=== PATIENT | female | born 1935 | race Caucasian/White ===

== ENCOUNTER → 2024-01-21 11:21 | Outpatient (REF) | payer OTHER, SELFPAY | LOC: HWRAD 11:21 | PROVIDERS: ATTENDING PHYSICIAN Student in an Organized Health Care Education/Training Program | DX: R10.31 Right lower quadrant pain (principal) | CPT/HCPCS: 73523 ==

== ENCOUNTER → 2024-03-17 14:25 | Outpatient (REF) | payer OTHER, SELFPAY | LOC: RAD 14:25 | PROVIDERS: ATTENDING PHYSICIAN Nurse Practitioner Adult Health; FAMILY PHYSICIAN Student in an Organized Health Care Education/Training Program | DX: I82.421 Acute embolism and thrombosis of right iliac vein (principal); R91.8 Other nonspecific abnormal finding of lung field; R09.02 Hypoxemia | CPT/HCPCS: 71250; 93971 ==

== ENCOUNTER → 2024-04-20 07:36 | Outpatient (REF) | payer OTHER, SELFPAY | LOC: RAD 07:36 | PROVIDERS: ATTENDING PHYSICIAN Student in an Organized Health Care Education/Training Program | DX: N28.89 Other specified disorders of kidney and ureter (principal) | CPT/HCPCS: 74178; Q9967 ==

== ENCOUNTER → 2024-10-11 10:52 | Outpatient (REF) | payer OTHER, SELFPAY | LOC: HWRCS 10:52 | PROVIDERS: ATTENDING PHYSICIAN Nuclear Medicine Nuclear Cardiology; FAMILY PHYSICIAN Student in an Organized Health Care Education/Training Program | DX: R06.02 Shortness of breath (principal); I25.10 Atherosclerotic heart disease of native coronary artery without angina pectoris; I50.32 Chronic diastolic (congestive) heart failure | CPT/HCPCS: 93306 ==

== ENCOUNTER 2024-12-08 18:12 | Inpatient (IN) | payer OTHER, SELFPAY ==
[2024-12-08] VITALS (9 sets, daily range): BP systolic 99–152; BP diastolic 53–112; BMI 29.8; BMI 29.2
[2024-12-08 12:01] LABS: % Basophils 0.7 % (0-2); % Eosinophils 3.4 % (0-6); % Immature Granulocytes 0.2 % (0-0.5); % Lymphocytes 28.5 % (20.5-51.1); % Monocytes 7.5 % (1.7-9.3); % Neutrophils 59.7 % (42.2-75.2); Absolute Basophils 0.1 10^3/uL (0-0.2); Absolute Eosinophils 0.4 10^3/uL (0-0.7); Absolute Monocytes 0.8 10^3/uL (0.1-0.6); Absolute Neutrophils 6.2 10^3/uL (1.4-6.5); Hematocrit 41.5 % (37.0-47.0); Hemoglobin 14.1 g/dL (12.0-16.0); Mean Corpuscular Hgb 32.7 pg (27.0-31.0); Mean Corpuscular Volume 96.3 fL (81.0-99.0); Mean Platelet Volume 9.9 fL (7.4-10.4); Nucleated Red Blood Cells % 0 %; Platelet Count 203 10^3/uL (130-400); Red Blood Cell Count 4.31 10^6/uL (4.20-5.40); Red Cell Dist. Width 14.4 % (11.5-14.5); White Blood Cell Count 10.4 10^3/uL (4.8-10.8)
[2024-12-08 12:24] LABS: Troponin I < 0.012 ng/ml
[2024-12-08 13:29] LABS: ALT (SGPT) 19 U/L (0-35); AST (SGOT) 22 U/L (14-36); Albumin 4.8 g/dl (3.5-5.0); Alkaline Phosphatase 98 U/L (38-126); Blood Urea Nitrogen 29 mg/dl (7-17); Calcium 9.9 mg/dl (8.4-10.2); Carbon Dioxide 22 mmol/L (22-30); Chloride 106 mmol/L (98-107); Glucose 103 mg/dl (70-99); Sodium 141 mmol/L (135-145); Total Protein 7.9 g/dl (6.3-8.2); eGFR 36.19
--- NOTE | 2024-12-08 14:17 | ED.GENMED ---
History of Present Illness
<Bouchra Cross PA-C - Last Filed: 12/09/24 01:35>
General
Chief Complaint: Heart Rate Problem
Source: patient
Exam Limitations: none
Time Seen by Provider: 12/08/24 13:39
Nursing documentation reviewed up to this point in time: agreed with
History of Present Illness
History of Present Illness:
Patient is an 89-year-old female with history of CHF, CAD s/p 2 stents, hypertension presenting to the emergency department for evaluation of shortness of breath. Patient reports a few weeks of worsening shortness of breath with exertion. No
exertional chest pain although she did have an episode about 2 weeks ago of substernal chest pressure radiating to both arms that woke her from her sleep. This lasted less than 10 minutes and then resolved. Patient does report frequent cough with
productive sputum over the past 2 weeks since recent URI. Patient denies any associated fevers, chills. No known weight gain. No recent diet changes
Patient states that she was at her primary care this morning for scheduled appointment and after discussion of patient symptoms along with some 'abnormal 'EKG�patient was sent to the emergency department for further evaluation
Past History
<Bouchra Cross PA-C - Last Filed: 12/09/24 01:35>
Past History
ED Past Medical History: CAD
Review of Systems
<Bouchra Cross PA-C - Last Filed: 12/09/24 01:35>
Review of Systems
Allergies reviewed?: Yes
All Other Systems: ROS reviewed and negative except as documented in HPI and ROS
Phy Exam
<Bouchra Cross PA-C - Last Filed: 12/09/24 01:35>
Physical Exam
Physical Exam:
Vitals: Hypertensive, mildly tachypneic, otherwise stable vital signs. Afebrile
General: Patient is well appearing, no acute distress
Skin: Warm and dry, no rashes or lesions
Head: Normocephalic, atraumatic
Eyes: Sclera nonicteric. EOMs intact. No nystagmus.
Throat: Protecting airway
Neck: Normal ROM, no cervical spine tenderness, no meningismus. No JVD
Cardiac: Regular rate and rhythm, no murmurs.
Pulm: Mildly tachypneic. O2 saturation 88-92 on room air. Mild expiratory wheeze bilaterally with scattered rhonchi. Frequent cough.
Abdomen: Abdomen soft. No abdominal tenderness.
Extremities: Nonpitting edema bilateral lower extremities.
Neuro: AAOx3. Grossly intact.
Psychiatric: Normal affect.
Course
<Bouchra Cross PA-C - Last Filed: 12/09/24 01:35>
Orders/Labs/Results
Orders:
Orders
12/08/24 11:35
ECG [Electrocardiogram (*1)] Urgent
Reason for Study: Abnormal EKG
12/08/24 11:36
EKG- Treatment ONCE
12/08/24 11:40
CXR2 [CR Chest - 2 Views ] Urgent
Comment:
Reason For Exam: sob
12/08/24 11:49
Complete Blood Count/With Diff Urgent
NT-proBNP Urgent
Comment: ADD ON
Troponin I Urgent
12/08/24 13:07
Comprehensive Metabolic Panel Urgent
12/08/24 14:09
Ipratropium/Albuterol Sulfate [Duoneb] 3 ml INH R NOW STA
12/08/24 14:21
COVID-19 Antigen Urgent
Source: Nasal Swab
Influenza A+B Rapid Molecular Urgent
SHAWN Source: Nasal Swab
Specimen Description:
12/08/24 14:22
Dexamethasone Sod Phosphate [Decadron] 6 mg IV NOW STA
12/08/24 14:50
Electrocardiogram (*1) Urgent
Reason for Study: Shortness of Breath
12/08/24 Dinner
Cholesterol Lowering
At Your Request: Limited Participation
Cholesterol Lowering: Sodium, 2 Gram
12/08/24 15:31
Troponin I Urgent
12/08/24 17:27
Admit/Transfer Patient As Directed
Co-Sign Provider:
Level of Care: Inpatient admission
Assign to:: Medical/Surgical
Physician / Group: Zack Deras
Diagnosis: bronchotis with hypoxia
Reason for Hospitalization: bronchitis with hypoxia
Expected length of stay greater than two midnights?: Yes
ELOS- Estimated Length of Stay in days: 3
I certify the patient meets the requirements for IP care: Yes
12/08/24 17:28
PRN Pain Medication Management As Directed
May give lesser potent ordered pain med per pt: Yes
preference::
Protocol:: Medication orders for pain may be administered in a
manner that supports deferring to patient preference
when the pt is:
- Requesting an ordered lesser potent pain medication.
Least to most potent pain medications are defined
as: acetaminophen < NSAID < tramadol < opioids
(morphine, oxycodone, hydromorphone).
- Requesting a lesser dose of the same medication IF
ORDERED.
- Requesting a less intrusive route of administration
if both routes are prescribed by the provider (PO <
IV).
12/08/24 17:30
Code Status As Directed
Resuscitation Status: Full Code
12/08/24 19:50
Ipratropium/Albuterol Sulfate [Duoneb] 3 ml INH R Q4HPRN PRN
12/08/24 19:50
Activity As Directed
Activity Level: Out of Bed-Early Mobility
Intake/ Output As Directed
Frequency: Per unit guidelines
Vital Signs As Directed
Frequency: Per unit guidelines
Weight As Directed
Frequency: Daily
O2 Therapy [RESP] Routine
Titrate/Wean O2 to maintain O2 sat greater than (%): 93
12/08/24 20:00
Apixaban [Eliquis] 5 mg PO BID
Guaifenesin [Mucinex] 1,200 mg PO Q12
Ipratropium/Albuterol Sulfate [Duoneb] 3 ml INH R QID
12/08/24 21:06
Urine Culture Reflexed from UA [Urinalysis Reflex To Culture] Routine
Date Specimen was Collected: 12/08/24
Time Specimen was Collected: 21:03
12/08/24 21:17
Artificial Tears (Pf) [Refresh Eye Drops (Pf)] 2 drops BOTH EYES QIDPRN PRN
12/09/24 00:00
Dexamethasone Sod Phosphate [Decadron] 4 mg IV Q8H
12/09/24 06:00
Basic Metabolic Panel IN AM
Complete Blood Count/No Diff IN AM
12/09/24 08:00
Allopurinol [Zyloprim] 100 mg PO DAILY
Ascorbic Acid [Vitamin C] 500 mg PO DAILY
Atorvastatin [Lipitor] 20 mg PO DAILY
Clopidogrel Bisulfate [Plavix] 75 mg PO DAILY
Diltiazem Extended Release [Cardizem Cd] 180 mg PO DAILY
Doxazosin Mesylate [Cardura] 0.5 mg PO DAILY
Ezetimibe [Zetia] 10 mg PO DAILY
Furosemide [Lasix] 20 mg PO DAILY
Multivitamin [Theragran] 1 tablet PO DAILY
Pantoprazole [Protonix] 40 mg PO DAILY
Potassium Chloride [KCl] 20 meq PO DAILY
biotin 1 mg PO DAILY
12/10/24 06:00
Basic Metabolic Panel IN AM
Complete Blood Count/No Diff IN AM
12/11/24 06:00
Basic Metabolic Panel IN AM
Complete Blood Count/No Diff IN AM
Abnormal Lab Results
12/08/24 12/08/24
11:49 13:07
MCH 32.7 H pg
(27.0-31.0)
Absolute Monos (auto) 0.8 H 10^3/uL
(0.1-0.6)
BUN 29 H mg/dl
(7-17)
Creatinine 1.4 H mg/dL
(0.6-1.0)
Glucose 103 H mg/dl
(70-99)
Total Bilirubin 2.0 H mg/dl
(0.2-1.3)
12/08/24 11:49
12/08/24 13:07
Vital Signs
Initial and Last Documented VS:
Initial Vital Signs
Temp Pulse Resp BP Pulse Ox
98.7 F 87 22 150/71 90
12/08/24 11:37 12/08/24 11:37 12/08/24 11:37 12/08/24 11:37 12/08/24 11:37
Last Documented Vital Signs
Temp Pulse Resp BP Pulse Ox
97.8 F 82 16 99/68 98
12/08/24 23:00 12/08/24 23:00 12/08/24 23:00 12/08/24 23:00 12/08/24 23:00
Fransicolt;Mk Pedro, DO - Last Filed: 12/08/24 14:27>
Orders/Labs/Results
Orders:
Orders
12/08/24 11:35
ECG [Electrocardiogram (*1)] Urgent
Reason for Study: Abnormal EKG
12/08/24 11:36
EKG- Treatment ONCE
12/08/24 11:40
CXR2 [CR Chest - 2 Views ] Urgent
Comment:
Reason For Exam: sob
12/08/24 11:49
Complete Blood Count/With Diff Urgent
NT-proBNP Urgent
Comment: ADD ON
Troponin I Urgent
12/08/24 13:07
Comprehensive Metabolic Panel Urgent
12/08/24 14:09
Ipratropium/Albuterol Sulfate [Duoneb] 3 ml INH R NOW STA
12/08/24 14:21
COVID-19 Antigen Urgent
Source: Nasal Swab
Influenza A+B Rapid Molecular Urgent
SHAWN Source: Nasal Swab
Specimen Description:
12/08/24 14:22
Dexamethasone Sod Phosphate [Decadron] 6 mg IV NOW STA
12/08/24 14:50
Electrocardiogram (*1) Urgent
Reason for Study: Shortness of Breath
12/08/24 Dinner
Cholesterol Lowering
At Your Request: Limited Participation
Cholesterol Lowering: Sodium, 2 Gram
12/08/24 15:31
Troponin I Urgent
12/08/24 17:27
Admit/Transfer Patient As Directed
Co-Sign Provider:
Level of Care: Inpatient admission
Assign to:: Medical/Surgical
Physician / Group: Zack Deras
Diagnosis: bronchotis with hypoxia
Reason for Hospitalization: bronchitis with hypoxia
Expected length of stay greater than two midnights?: Yes
ELOS- Estimated Length of Stay in days: 3
I certify the patient meets the requirements for IP care: Yes
12/08/24 17:28
PRN Pain Medication Management As Directed
May give lesser potent ordered pain med per pt: Yes
preference::
Protocol:: Medication orders for pain may be administered in a
manner that supports deferring to patient preference
when the pt is:
- Requesting an ordered lesser potent pain medication.
Least to most potent pain medications are defined
as: acetaminophen < NSAID < tramadol < opioids
(morphine, oxycodone, hydromorphone).
- Requesting a lesser dose of the same medication IF
ORDERED.
- Requesting a less intrusive route of administration
if both routes are prescribed by the provider (PO <
IV).
12/08/24 17:30
Code Status As Directed
Resuscitation Status: Full Code
12/08/24 19:50
Ipratropium/Albuterol Sulfate [Duoneb] 3 ml INH R Q4HPRN PRN
12/08/24 19:50
Activity As Directed
Activity Level: Out of Bed-Early Mobility
Intake/ Output As Directed
Frequency: Per unit guidelines
Vital Signs As Directed
Frequency: Per unit guidelines
Weight As Directed
Frequency: Daily
O2 Therapy [RESP] Routine
Titrate/Wean O2 to maintain O2 sat greater than (%): 93
12/08/24 20:00
Apixaban [Eliquis] 5 mg PO BID
Guaifenesin [Mucinex] 1,200 mg PO Q12
Ipratropium/Albuterol Sulfate [Duoneb] 3 ml INH R QID
12/08/24 21:06
Urine Culture Reflexed from UA [Urinalysis Reflex To Culture] Routine
Date Specimen was Collected: 12/08/24
Time Specimen was Collected: 21:03
12/08/24 21:17
Artificial Tears (Pf) [Refresh Eye Drops (Pf)] 2 drops BOTH EYES QIDPRN PRN
12/09/24 00:00
Dexamethasone Sod Phosphate [Decadron] 4 mg IV Q8H
12/09/24 06:00
Basic Metabolic Panel IN AM
Complete Blood Count/No Diff IN AM
12/09/24 08:00
Allopurinol [Zyloprim] 100 mg PO DAILY
Ascorbic Acid [Vitamin C] 500 mg PO DAILY
Atorvastatin [Lipitor] 20 mg PO DAILY
Clopidogrel Bisulfate [Plavix] 75 mg PO DAILY
Diltiazem Extended Release [Cardizem Cd] 180 mg PO DAILY
Doxazosin Mesylate [Cardura] 0.5 mg PO DAILY
Ezetimibe [Zetia] 10 mg PO DAILY
Furosemide [Lasix] 20 mg PO DAILY
Multivitamin [Theragran] 1 tablet PO DAILY
Pantoprazole [Protonix] 40 mg PO DAILY
Potassium Chloride [KCl] 20 meq PO DAILY
biotin 1 mg PO DAILY
12/10/24 06:00
Basic Metabolic Panel IN AM
Complete Blood Count/No Diff IN AM
12/11/24 06:00
Basic Metabolic Panel IN AM
Complete Blood Count/No Diff IN AM
Abnormal Lab Results
12/08/24 12/08/24
11:49 13:07
MCH 32.7 H pg
(27.0-31.0)
Absolute Monos (auto) 0.8 H 10^3/uL
(0.1-0.6)
BUN 29 H mg/dl
(7-17)
Creatinine 1.4 H mg/dL
(0.6-1.0)
Glucose 103 H mg/dl
(70-99)
Total Bilirubin 2.0 H mg/dl
(0.2-1.3)
12/08/24 11:49
12/08/24 13:07
Vital Signs
Initial and Last Documented VS:
Initial Vital Signs
Temp Pulse Resp BP Pulse Ox
98.7 F 87 22 150/71 90
12/08/24 11:37 12/08/24 11:37 12/08/24 11:37 12/08/24 11:37 12/08/24 11:37
Last Documented Vital Signs
Temp Pulse Resp BP Pulse Ox
97.8 F 82 16 99/68 98
12/08/24 23:00 12/08/24 23:00 12/08/24 23:00 12/08/24 23:00 12/08/24 23:00
<Bouchra Cross PA-C - Last Filed: 12/09/24 01:35>
MDM/Problems Addressed
Differential Diagnosis Includes:
Not limited to: Acute CHF exacerbation, bronchitis, pneumonia, acute coronary syndrome, etc.
MDM/Problems Addressed:
89-year-old female with progressively worsening shortness of breath and cough over the past few weeks after recent URI. No fevers or chest pain. Vital stable. Physical exam as above. O2 saturation between 88�92 on room air. Heart regular rate
and rhythm. On lung auscultation�patient has scattered rhonchi and expiratory wheeze bilaterally with frequent cough. No significant lower extremity edema. Basic labs initiated in triage without any clinically significant abnormalities. Mild
renal insufficiency noted and appears chronic. Initial troponin undetectable. Chest x-ray without acute abnormalities. EKG without acute ischemic changes. Overall impression is possible viral bronchitis from recent URI. Will add on BNP. Will
check viral swabs. Will give DuoNeb and IV Decadron.
Update: BNP 318. Repeat troponin remains undetectable. Overall picture not consistent with acute CHF exacerbation. Patient has been hypoxic on room air requiring 2 L nasal cannula. Ultimately suspect viral bronchitis with acute hypoxia. Will
admit patient for further respiratory support and continued management. Patient excepted to hospitalist service in stable condition. Case discussed with attending physician.
Chronic conditions affecting care:
CAD, CHF, hypertension
Acute Exacerbation and/or Progression of Chronic Illness:
Acutely hypertensive
<Bouchra Cross PA-C - Last Filed: 12/09/24 01:35>
*Radiology
Radiology exam reviewed: preliminary read by ED provider and radiology read reviewed
*Pulse Oximetry
Patient hypoxic: yes
*EKG
Interpreted by ED Provider?: Yes
EKG Intrepretation Date: 12/08/24
Interpretation: abnormal
Comparison EKG: changes noted
Heart Rate: 79
Rate: normal
Rhythm: sinus
Interval: normal QT interval and first degree heart block
Ischemia: non-specific ST changes
*Motorcycle Designer Interpretation
Rate: normal
Interpretation: normal
Heart Rate: 84
Rhythm: sinus
*Critical Care Note
Total Time (30-74mins, 75-104mins- exclusive of procedures): Not Applicable
<Bouchra Cross PA-C - Last Filed: 12/09/24 01:35>
Patient Management
Discussion with other providers: Hospitalist
Escalation/DeEscalation of care consider admission/obs:
Admit indicated viral bronchitis and acute hypoxia requiring supplemental O2
ED Attending Note
<Bouchra Cross PA-C - Last Filed: 12/09/24 01:35>
-
Portions of this chart may have been created with voice recognition software.� Occasional wrong word or��sound alike� substitutions may have occurred due to the inherent limitations of voice recognition software.
<Mk Pedro DO - Last Filed: 12/08/24 14:27>
ED Attending Note
Patient seen and examined by attending physician: Yes
I performed the substantive portion of visit, reviewed & personally made and approve the management plan that is documented in note by myself or TERESA.: Yes
ED Attending Note:
Seen with the PA examined independently 89-year-old female subacute onset of shortness of breath, cough congestion weight gain leg edema
Still wheezy rhonchorous chest, chest x-ray noted proBNP pending low threshold to admit
Discharge Plan
Departure
Patient Disposition: Admit
Date of Disposition: 12/08/24
Time of Disposition: 16:17
Presentation/result/management discussed w/ accepting MD/DO: Hospitalist
Discharge Problem:
Hypoxia, Acute bronchitis
Interventions
Interventions:
*Risk Screen - Suicide Last Done: 12/08/24 11:37
*General Assessment Last Done: 12/08/24 15:41
*Neglect/Abuse Screening Last Done: 12/08/24 11:37
ED- Fall Risk Assessment Last Done: 12/08/24 20:07
*ED COVID-19 Vaccine History Last Done: 12/08/24 15:41
*Nursing Disposition Last Done: 12/08/24 20:07
ED- Cardiac Assessment Last Done: 12/08/24 15:46
ED- Pulmonary Assessment Last Done: 12/08/24 15:46
Discharge Date and Time
Discharge Date/Time: 12/08/24 20:08
[2024-12-08] MEDS: DUONEB 3 ML INH ×2 (14:23→20:08)
[2024-12-08 14:52] LABS: COVID-19 Antigen Negative (Negative)
[2024-12-08] MEDS: DECADRON 6 MG IV (15:31)
[2024-12-08 16:10] LABS: NT-proBNP 318 pg/ml
[2024-12-08 16:15] LABS: Troponin I < 0.012 ng/ml
--- NOTE | 2024-12-08 16:28 | HPS.HSE ---
Family Physician
-
Family Physician: Nick Ledbetter
Chief Complaint
-
abnormal out patient EKG
History of Present Illness
Patient is a 89-year-old female with past medical history significant for HFpEF, CAD, hypertension and hyperlipidemia who presented to [facility] ED for evaluation by recommendation of primary care provider for abnormal EKG in primary office.
Patient reports URI symptoms for approximately 2-3 weeks. She reports increased shortness of breath with cough especially at night. Cough is moist and non-productive. She reports an episodes of being woken from her sleep with chest pressure that
radiated to bilateral arms, she reports it was associated with a coughing fit that took about 10 minutes to resolve. Patient also reports that she has foul smelling urine. Patient denies any fever, chills, nausea, vomiting, constipation or diarrhea.
Medical History
Past Medical History
Past Medical History: Reports None
Additional Past Medical History:
HFpEF
CAD
hypertension
hyperlipidemia
Hx DVT
Past Surgical History: Reports None
Additional Past Surgical History:
cardiac stent x2
hysterectomy
breast augmentation
exploratory laparoscopy for endometriosis
appendectomy
b/l knee replacements
Social History
Tobacco: Non-smoker
Alcohol: None
Drug: None
Personal:
Living: With Family
Employment: Retired
Family History
Family History: Not pertinent
Allergies / Home Medications
Allergies reflects when Allergies were last updated in [facility].
Home Medications with original date entered in [facility]
Allergy/Medication List:
Allergies
Allergy/AdvReac Type Severity Reaction Status Date / Time
adhesive tape Allergy Unknown Verified 12/08/24 11:37
iodine Allergy Unknown Verified 12/08/24 11:37
povidone-iodine Allergy Unknown Verified 12/08/24 11:37
[From Betadine]
Home Medications
allopurinol 100 mg tablet 100 mg PO DAILY gout 11/09/23
diltiazem HCl 180 mg capsule,extended release 24 hr 180 mg PO DAILY blood pressure 11/09/23
doxazosin 1 mg tablet 0.5 mg PO DAILY blood pressure 11/09/23
ezetimibe 10 mg tablet 10 mg PO DAILY high cholesterol 11/09/23
pantoprazole 40 mg tablet,delayed release 40 mg PO DAILY Gastrointestinal Issue 11/09/23
polyvinyl alcohol-povidone 0.5 %-0.6 % eye drops 2 drp BOTH EYES QIDPRN PRN dry eyes 11/09/23
potassium chloride 20 mEq tablet,extended release 20 meq PO DAILY Electrolyte Repletion 11/25/23
apixaban 5 mg tablet (Eliquis) 5 mg PO BID #60 tabs 12/02/23
clopidogrel 75 mg tablet 75 mg PO DAILY Blood clot prevention/tx #30 tabs 12/02/23
furosemide 20 mg tablet 20 mg PO DAILY #30 tabs 12/02/23
ascorbic acid (vitamin C) 500 mg tablet (Vitamin C) 500 mg PO DAILY 12/08/24
atorvastatin 20 mg tablet 20 mg PO DAILY 12/08/24
biotin 1 mg tablet 1 mg PO DAILY 12/08/24
therapeutic multivitamin 1 tab PO DAILY 12/08/24
Review of Systems
-
History Source: Patient
Constitutional: Reports No Symptoms
EENT: Reports No Symptoms
Respiratory: Reports Cough (non-productive moist ) and Other (shortness of breath )
Cardiac: Reports No Symptoms
Abdomen/GI: Reports No Symptoms
: Reports Other (foul smelling urine )
Musculoskeletal: Reports No Symptoms
Skin: Reports No Symptoms
Neurological: Reports No Symptoms
Endocrine: Reports No Symptoms
Hematologic/Lymphatic: Reports No Symptoms
Psych: Reports No Symptoms
Physical Exam
Vital Signs
Vital Signs
Temp Pulse Resp BP Pulse Ox
98.7 F 81 24 138/64 95
12/08/24 11:37 12/08/24 15:45 12/08/24 15:45 12/08/24 15:40 12/08/24 16:16
Physical Exam
General: Well Developed, Well Nourished and No Apparent Distress
HEENT: NormoCephalic, Moist mucous membranes and Atraumatic
Respiratory: Clear and Wheezes
Cardiac: S1/S2 and Regular Rhythm; No Murmur, Rub or Gallop
GI: Soft, Non Tender, Non Distended and Normal Bowel Sounds; No Organomegaly
Rectal: Deferred by Provider
Genito-urinary: Deferred by me
Musculoskeletal: No Clubbing, No Cyanosis and No Edema
Skin: No Rash
Neuro: Awake, Alert and Nonfocal/grossly intact
Psych: Calm and Intact Judgment/Insight
Laboratory Results
-
12/08/24 11:49
12/08/24 13:07
Laboratory Results
Total Bilirubin 2.0 mg/dl (0.2-1.3) H 12/08/24 13:07
AST 22 U/L (14-36) 12/08/24 13:07
ALT 19 U/L (0-35) 12/08/24 13:07
Alkaline Phosphatase 98 U/L (38-126) 12/08/24 13:07
Troponin I < 0.012 ng/ml 12/08/24 15:31
Data Reviewed
-
Diagnostic Radiology: Report Reviewed by me (CXR: No acute cardiopulmonary process.)
Medical Tests (Nuc Med, Echo, EKG etc): Report Reviewed by me (EKG: SINUS RHYTHM WITH 1ST DEGREE A-V BLOCK LEFT ANTERIOR FASCICULAR BLOCK ANTEROSEPTAL INFARCT (CITED ON OR BEFORE 26-NOV-2023))
Lab Data: Labs Reviewed by me (BUN 29, Creat 1.4, BNP 318)
Impression/Plan
-
IMPRESSION/PLAN:
#shortness of breath with hypoxia
CXR: No acute cardiopulmonary process.
- Admit to med/surg
- DuoNeb ATC and PRN
- IV Decadron
- O2 PRN titrate as needed to maintain SpO2 >93%
- Mucinex
#HFpEF
BNP 318
ECHO (10/11/2024): Technically difficult study. Consider use of IV echo contrast for future studies.
Normal left ventricular size and systolic function.
Left ventricular ejection fraction visually estimated 55-60%
No significant valvular disease.
Compared to prior study dated 11/26/2023, no significant change
- daily weights
- continue ezetimibe, furosemide, and potassium chloride
#CAD
s/p cardiac stent x2
- continue clopidogrel and Eliquis
#hypertension
- continue diltiazem
#hyperlipidemia
- continue atorvastatin and doxazosin
#Hx DVT
- continue Eliquis BID
#GERD
- continue pantoprazole
Code status: Full code
DVT Prophylaxis: Eliquis
--- NOTE | 2024-12-08 20:20 | PTCARENOTE ---
Pt received from ED at 1999. Pt pleasant, [id number], VSS, and pulled over into bed from stretcher. Pt receptive to room and call brennan. Pt bed in lowest position and call brennan within reach. Pt educated on importance of call brennan usage. Pt relays
understanding and cooperation. Will continue with current plan of care.
--- NOTE | 2024-12-08 20:45 | W.PN.UPDATE ---
Update Note
Progress Note Update
Attending addendum
Patient seen independently
89-year-old woman with past medical history significant for:
HFpEF,
CAD,
essential hypertension
hyperlipidemia
presents because of abnormal EKG in primary office. Also reports URI symptoms for 2-3 weeks. Specifically, she reports increased shortness of breath with cough worst at night. Cough is moist and non-productive. She reports being woken from her sleep
with chest pressure that radiated to bilateral arms, this pain was associated with a coughing fit that took about 10 minutes to resolve. She also reports that she has foul smelling urine. She denies any fever, chills, nausea, vomiting, constipation
or diarrhea. At the time of my exam, she stated that her breathing was feeling better. CXR does not show active process.
Past Medical History
HFpEF
CAD
hypertension
hyperlipidemia
Hx DVT
Past Surgical History: Reports None
Additional Past Surgical History:
cardiac stent x2
hysterectomy
breast augmentation
exploratory laparoscopy for endometriosis
appendectomy
b/l knee replacements
Physical Exam
General: Well Developed, Well Nourished and No Apparent Distress
HEENT: NormoCephalic, Moist mucous membranes and Atraumatic
Respiratory: Clear and Wheezes
Cardiac: S1/S2 and Regular Rhythm; No Murmur, Rub or Gallop
GI: Soft, Non Tender, Non Distended and Normal Bowel Sounds; No Organomegaly
Psych: Calm
Impression/Plan
1. shortness of breath with possible hypoxia - probable viral process
Troponin neg
BNP low
CXR without active process
- DuoNeb ATC and PRN
- IV Decadron
- O2 PRN titrate as needed to maintain SpO2 >93%
- Mucinex
2. HFpEF - likely not exacerbated
- daily weights
- continue ezetimibe, furosemide, and potassium chloride
Please see LIBRARIAN ASSISTANT note for full details on:
CAD
hypertension
hyperlipidemia
Hx DVT (on eliquis)
GERD
Code status: Full code
DVT Prophylaxis: Eliquis
[2024-12-08 21:16] LABS: Urine Albumin Negative (Neg - Trace); Urine Bilirubin Negative (Negative); Urine Character Slightly Cloudy (Clear); Urine Color Yellow; Urine Glucose Negative (Negative); Urine Ketone Negative (Negative); Urine Leukocyte 1+ (Negative); Urine Nitrite Negative (Negative); Urine Occult Blood Negative (Negative); Urine Urobilinogen Negative (Neg - 1+)
[2024-12-08 21:25] LABS: Urine Red Blood Cell 0-2 /HPF (0-2)
[2024-12-08 21:26] LABS: Urine Bacteria Many (Negative); Urine White Cell 16-20 /HPF (0-5)
[2024-12-08] MEDS: ELIQUIS 5 MG PO (21:55)
[2024-12-08] MEDS: MUCINEX 1200 MG PO (21:55)
[2024-12-08] MEDS: MELATONIN 3 MG PO (22:59)
[2024-12-08] MEDS: DECADRON 4 MG IV (23:02)
[2024-12-09 06:00] VITALS: BMI 28.9
[2024-12-09 07:00] VITALS: BP 116/87
--- NOTE | 2024-12-09 07:27 | W.PN.HOSP.TC ---
Today's Communication/Plan
-
cont steroids
Bronchodilators
Incentive Spirometer, Acapella, VEST
wean O2 supplementation as tolerated.
Assessment / Plan
Assessment / Plan
Physical Exam
General: No acute distress. Appears Comfortable at this time
HEENT: NormoCephalic, Moist mucous membranes and Atraumatic
Respiratory: Rhonchi
Cardiac: S1/S2 and Regular Rhythm; No Murmur, Rub or Gallop
GI: Soft, Non Tender, Non Distended and Normal Bowel Sounds; No Organomegaly
Musculoskeletal: No Clubbing, No Cyanosis and No Edema
Skin: No Rash
Neuro: Awake, Alert and Nonfocal/grossly intact
Psych: Calm and Intact Judgment/Insight
89F HFpEF CAD HTN HLD hx DVT Eliquis here with hypoxia requiring 2L nasal cannula, suspect post-viral upper respiratory illness- reported URI symptoms for the past 2-3 wks.
#shortness of breath with hypoxia
#Suspect Post-viral upper respiratory illness
CXR: No acute cardiopulmonary process.
- DuoNeb ATC and PRN
- IV Decadron
- O2 PRN titrate as needed to maintain SpO2 >93%, wean as tolerated
- Mucinex
- Incentive Spirometer, Acapella, VEST
#HFpEF
BNP 318
ECHO (10/11/2024): Technically difficult study. Consider use of IV echo contrast for future studies.
Normal left ventricular size and systolic function.
Left ventricular ejection fraction visually estimated 55-60%
No significant valvular disease.
Compared to prior study dated 11/26/2023, no significant change
- daily weights
- continue ezetimibe, furosemide, and potassium chloride
#Regarding Abnormal EKG
-EKGs done here 12.08.24 appeared relatively similar to EKGs done 11.26.23, no significant changes were noted
-chest pain free, negative troponin, BNP unremarkable
-case was discussed with patient's outpt Visitor Services Representative Dr Vargas who recommended patient continue with her prior scheduled follow up appt in Dec
#CAD
hx cardiac stents x2
- continue clopidogrel
#hypertension
- continue diltiazem
#hyperlipidemia
- continue atorvastatin and doxazosin
#Hx DVT
- continue Eliquis BID
#GERD
- continue pantoprazole
Code status: Full code
DVT Prophylaxis: Eliquis
Discussed with patient and patient's daughter Danielle
I spent a total of 50 minutes with the patient or on the floor. More than 50% of this time involved counseling and coordination of care.
Anticipated Discharge: 24 - 48 hours
Subjective/Interval History
-
Date of Service: December 09, 2024
Seen and examined at bedside in no acute distress sitting up comfortably in bed. Requiring 2L nasal cannula. denies chest pain palpitations.
Objective Data
-
Labs:
Laboratory Results
12/09/24
07:20
WBC Pending
Hgb Pending
Hct Pending
Plt Count Pending
Sodium Pending
Potassium Pending
Chloride Pending
Carbon Dioxide Pending
BUN Pending
Creatinine Pending
Glucose Pending
Calcium Pending
Vital Signs:
Vital Signs
Temp Pulse Resp BP Pulse Ox
97.8 F 82 16 99/68 98
12/08/24 23:00 12/08/24 23:00 12/08/24 23:00 12/08/24 23:00 12/08/24 23:00
I&O
12/08/24 12/09/24 12/10/24
06:59 06:59 06:59
Intake Total 240 / 240
Balance 240 / 240
[2024-12-09] MEDS: DUONEB 3 ML INH ×4 (08:03→19:20)
[2024-12-09 08:10] LABS: Hematocrit 37.7 % (37.0-47.0); Mean Corp Hgb Conc. 34.5 g/dL (33.0-37.0); Mean Corpuscular Hgb 32.8 pg (27.0-31.0); Mean Corpuscular Volume 95.2 fL (81.0-99.0); Mean Platelet Volume 10.5 fL (7.4-10.4); Platelet Count 192 10^3/uL (130-400); Red Blood Cell Count 3.96 10^6/uL (4.20-5.40); Red Cell Dist. Width 14.1 % (11.5-14.5); White Blood Cell Count 7.8 10^3/uL (4.8-10.8)
[2024-12-09 08:32] LABS: Blood Urea Nitrogen 33 mg/dl (7-17); Calcium 9.5 mg/dl (8.4-10.2); Carbon Dioxide 20 mmol/L (22-30); Chloride 105 mmol/L (98-107); Estimated Creatinine Clearance 32 ml/min; Glucose 137 mg/dl (70-99); Potassium 4.6 mmol/L (3.5-5.1); Sodium 137 mmol/L (135-145); eGFR 43.54
[2024-12-09] MEDS: THERAGRAN 1 TABLET PO (08:52)
[2024-12-09] MEDS: REFRESH EYE DROPS (PF) 2 DROPS BOTH EYES (08:52)
[2024-12-09] MEDS: ZYLOPRIM 100 MG PO (08:52)
[2024-12-09] MEDS: ELIQUIS 5 MG PO ×2 (08:53→19:20)
[2024-12-09] MEDS: ZETIA 10 MG PO (08:53)
[2024-12-09] MEDS: MUCINEX 1200 MG PO ×2 (08:53→19:20)
[2024-12-09] MEDS: KCL 20 MEQ PO (08:53)
[2024-12-09] MEDS: PROTONIX 40 MG PO (08:54)
[2024-12-09] MEDS: VITAMIN C 500 MG PO (08:54)
[2024-12-09] MEDS: CARDURA 0.5 MG PO (08:54)
[2024-12-09] MEDS: PLAVIX 75 MG PO (08:54)
[2024-12-09] MEDS: LIPITOR 20 MG PO (08:54)
[2024-12-09] MEDS: LASIX 20 MG PO (08:54)
[2024-12-09] MEDS: CARDIZEM CD 180 MG PO (08:55)
[2024-12-09] MEDS: DECADRON 4 MG IV ×3 (08:56→23:40)
[2024-12-09 15:00] VITALS: BP 121/62
--- NOTE | 2024-12-09 16:12 | CM ---
CM reviewed chart, patient seen bedside, initial assessment completed. Patient resides in a condo attached to [facility], one level, one step to enter. Patient reports she has a walker at home that is close to 20 years old and inquiring if she
can get a new walker. Patient currently on O2, does not wear home O2. Patient reports [facility] in past, denies SNF history. Patient PCP Diya Benites, pharmacy [facility], unsure if she has prescription coverage. CM will continue to follow for
all discharge planning needs.
Plan; home no needs, watch for 02 needs, patient may benefit from PT evals
[2024-12-09 23:00] VITALS: BP 118/55
[2024-12-10] MEDS: SENOKOT 8.6 MG PO (03:37)
[2024-12-10 06:00] VITALS: BMI 29.8
[2024-12-10 07:05] VITALS: BP 113/66
--- NOTE | 2024-12-10 07:08 | W.PN.HOSP.TC ---
Today's Communication/Plan
-
Wean O2 supplementation as tolerated
Incentive Spirometer Acapella VEST therapy
Discontinue Steroids
Pulm eval
PT/OT
Bowel Regimen
Assessment / Plan
Assessment / Plan
Physical Exam
General: No acute distress. Appears Comfortable at this time
HEENT: NormoCephalic, Moist mucous membranes and Atraumatic
Respiratory: Clear to auscultation b/l
Cardiac: S1/S2 and Regular Rhythm; No Murmur, Rub or Gallop
GI: Soft, Non Tender, Non Distended and Normal Bowel Sounds; No Organomegaly
Musculoskeletal: No Clubbing, No Cyanosis and No Edema
Skin: No Rash
Neuro: Awake, Alert and Nonfocal/grossly intact
Psych: Calm and Intact Judgment/Insight
89F HFpEF CAD HTN HLD hx DVT Eliquis here with hypoxia requiring 2L nasal cannula, suspect post-viral upper respiratory illness- reported URI symptoms for the past 2-3 wks.
#shortness of breath with hypoxia
#Suspect Post-viral upper respiratory illness, possible Bronchitis
#Exertional Dyspnea
CXR: No acute cardiopulmonary process.
- DuoNeb ATC and PRN
- No wheezing, IV Decadron discontinued as per pulm
- O2 PRN titrate as needed to maintain SpO2 >93%, wean as tolerated
- Mucinex
- Incentive Spirometer, Acapella, VEST
#HFpEF
BNP 318
ECHO (10/11/2024): Technically difficult study. Consider use of IV echo contrast for future studies.
Normal left ventricular size and systolic function.
Left ventricular ejection fraction visually estimated 55-60%
No significant valvular disease.
Compared to prior study dated 11/26/2023, no significant change
- daily weights
- continue ezetimibe, furosemide, and potassium chloride
Constipation
-bowel regimen Miralax Senna Colace
Urine Cx pos w/ E. coli
-suspect benign bacteriuria
-no urinary symptoms
-afebrile
-leukocytosis at this time likely due to steroids
-monitor off abx
#Regarding Abnormal EKG
-EKGs done here 12.08.24 appeared relatively similar to EKGs done 11.26.23, no significant changes were noted
-chest pain free, negative troponin, BNP unremarkable
-case was discussed with patient's outpt Signals Intelligence Analysis Manager Dr Vargas who recommended patient continue with her prior scheduled follow up appt in Dec
#CAD
hx cardiac stents x2
- continue clopidogrel
#hypertension
- continue diltiazem
#hyperlipidemia
- continue atorvastatin and doxazosin
#Hx DVT
- continue Eliquis BID
#GERD
- continue pantoprazole
Code status: Full code
DVT Prophylaxis: Eliquis
Discussed with patient and patient's daughter Danielle
I spent a total of 50 minutes with the patient or on the floor. More than 50% of this time involved counseling and coordination of care.
Anticipated Discharge: 24 - 48 hours
Subjective/Interval History
-
Date of Service: December 10, 2024
Reports constipation and exertional dyspnea. Otherwise no acute distress at rest.
Objective Data
-
Labs:
Laboratory Results
12/10/24
06:55
WBC Pending
Hgb Pending
Hct Pending
Plt Count Pending
Sodium Pending
Potassium Pending
Chloride Pending
Carbon Dioxide Pending
BUN Pending
Creatinine Pending
Glucose Pending
Calcium Pending
Vital Signs:
Vital Signs
Temp Pulse Resp BP Pulse Ox
98.5 F 85 22 118/55 93
12/09/24 23:00 12/09/24 23:00 12/09/24 23:00 12/09/24 23:00 12/09/24 23:08
I&O
12/09/24 12/10/24 12/11/24
06:59 06:59 06:59
Intake Total 240 / 240 1320 / 1320
Output Total 350 / 350
Balance 240 / 240 970 / 970
[2024-12-10 07:27] LABS: Hematocrit 35.7 % (37.0-47.0); Mean Corp Hgb Conc. 33.6 g/dL (33.0-37.0); Mean Corpuscular Hgb 32.3 pg (27.0-31.0); Mean Corpuscular Volume 96.2 fL (81.0-99.0); Mean Platelet Volume 10.6 fL (7.4-10.4); Platelet Count 170 10^3/uL (130-400); Red Blood Cell Count 3.71 10^6/uL (4.20-5.40); Red Cell Dist. Width 14.1 % (11.5-14.5); White Blood Cell Count 14.3 10^3/uL (4.8-10.8)
[2024-12-10] MEDS: DUONEB 3 ML INH ×4 (07:55→19:38)
[2024-12-10] MEDS: CARDIZEM CD 180 MG PO (08:59)
[2024-12-10] MEDS: PROTONIX 40 MG PO (08:59)
[2024-12-10] MEDS: MUCINEX 1200 MG PO ×2 (09:00→19:52)
[2024-12-10] MEDS: ZETIA 10 MG PO (09:00)
[2024-12-10] MEDS: CARDURA 0.5 MG PO (09:00)
[2024-12-10] MEDS: LASIX 20 MG PO (09:01)
[2024-12-10] MEDS: PLAVIX 75 MG PO (09:01)
[2024-12-10] MEDS: LIPITOR 20 MG PO (09:02)
[2024-12-10] MEDS: ZYLOPRIM 100 MG PO (09:02)
[2024-12-10] MEDS: VITAMIN C 500 MG PO (09:02)
[2024-12-10] MEDS: KCL 20 MEQ PO (09:03)
[2024-12-10] MEDS: ELIQUIS 5 MG PO ×2 (09:03→19:52)
[2024-12-10] MEDS: DECADRON 4 MG IV (09:04)
[2024-12-10] MEDS: THERAGRAN 1 TABLET PO (09:04)
--- NOTE | 2024-12-10 09:21 | CON.PUL ---
Consultation
Consultation Request
Date/Time Consultation Requested: 12/10/24
Date/Time Consultation Performed: 12/10/24
Performing Provider: Aniya
Reason for Consultation: SOB
Medical History
-
History of Present Illness:
Patient is an 89-year-old female with previous history of heart failure, CAD, hypertension presenting to ER for upper respiratory infection symptoms for approximately 2 to 3 weeks prior to presentation. She notes increasing shortness of breath,
cough at night, chest pressure. Chest x-ray demonstrating no acute process.
She has been seen in our office in the past with spirometry (03/2024) showing no evidence for airflow obstruction and 6-minute walk testing demonstrating no hypoxemia.
She notes that frequently she has chest congestion and takes Mucinex at home.
Currently admitted for UTI.
Past Medical History
Past Medical History: Other (see list below)
Social History
Tobacco: Non-smoker
Alcohol: None
Drug: None
Allergies / Home Medications
Allergies
Allergy/AdvReac Type Severity Reaction Status Date / Time
adhesive tape Allergy Unknown Verified 12/08/24 11:37
iodine Allergy Unknown Verified 12/08/24 11:37
povidone-iodine Allergy Unknown Verified 12/08/24 11:37
[From Betadine]
Home Medications
�Medication �Instructions �Recorded �Confirmed �Last Taken �Type
allopurinol 100 mg tablet 100 mg PO DAILY gout 11/09/23 12/08/24 11/25/23 History
diltiazem HCl 180 mg 180 mg PO DAILY blood pressure 11/09/23 12/08/24 11/24/23 History
capsule,extended release 24 hr
doxazosin 1 mg tablet 0.5 mg PO DAILY blood pressure 11/09/23 12/08/24 11/24/23 History
ezetimibe 10 mg tablet 10 mg PO DAILY high cholesterol 11/09/23 12/08/24 11/24/23 History
pantoprazole 40 mg tablet,delayed 40 mg PO DAILY Gastrointestinal 1212/08/24 11/24/23 History
release Issue
polyvinyl alcohol-povidone 0.5 2 drp BOTH EYES QIDPRN PRN dry eyes 11/09/23 12/08/24 2 Days Ago History
%-0.6 % eye drops ~11/07/23
potassium chloride 20 mEq 20 meq PO DAILY Electrolyte 11/25/23 12/08/24 11/24/23 16:12 History
tablet,extended release Repletion
apixaban 5 mg tablet (Eliquis) 5 mg PO BID #60 tabs 12/02/23 12/08/24 Unknown Rx
clopidogrel 75 mg tablet 75 mg PO DAILY Blood clot 12/02/23 12/08/24 Unknown Rx
prevention/tx #30 tabs
furosemide 20 mg tablet 20 mg PO DAILY #30 tabs 12/02/23 12/08/24 Unknown Rx
ascorbic acid (vitamin C) 500 mg 500 mg PO DAILY 12/08/24 12/08/24 Unknown History
tablet (Vitamin C)
atorvastatin 20 mg tablet 20 mg PO DAILY 12/08/24 12/08/24 Unknown History
biotin 1 mg tablet 1 mg PO DAILY 12/08/24 12/08/24 Unknown History
therapeutic multivitamin 1 tab PO DAILY 12/08/24 12/08/24 Unknown History
Review of Systems
-
History Source: Patient
All other systems: Negative unless noted
Vitals / Labs / Diagnostic Testing
Vital Signs
Temp Pulse Resp BP Pulse Ox
97.3 F 77 18 113/66 95
12/10/24 07:05 12/10/24 07:58 12/10/24 07:58 12/10/24 07:05 12/10/24 07:58
Lab Data
12/10/24 06:55
Microbiology
12/08/24 14:21 Nasal Swab Influenza Types A & B (SILVESTRE) - Final
Negative for Influenza A & B, NAAT
Negative results must be combined with clinical observations
and patient history.
Nucleic Acid Amplification test (NAAT)performed on the
[employer] NOW platform.
Diagnostic Testing:
Physical Exam
-
HEENT: Normocephalic, Anicteric and Moist Mucous Membranes
Cardiovascular: S1/S2 and Regular Rhythm
Respiratory: Rhonchi and Non-Labored Respirations
GI: Soft, Non Distended and Non Tender
Neurology: Awake, Alert, Oriented and No Motor Deficits
Skin: Warm, Dry and Good Color
General: Comfortable and Other (NAD)
Assessment
-
Patient is an 89-year-old female with previous history of heart failure, CAD, hypertension presenting to ER for upper respiratory infection symptoms for approximately 2 to 3 weeks prior to presentation. She notes increasing shortness of breath,
cough at night, chest pressure. Chest x-ray demonstrating no acute process. Currently has evidence for UTI. We are consulted for possible bronchitis.
UTI
Cough/shortness of breath-unclear etiology, metabolic acidosis from sepsis causing increased resp compensation
Chronic shortness of breath: Suspect due to deconditioning/recovering pneumonia, spirometry as OP normal
Bilateral nephrolithiasis on CT
Conditions present prior admission:
Influenza A+ requiring hospitalization
Recent pneumonia, hospitalized [place], discharged 11/03/23
Coronary disease with stents �2 in September 2023, [place]
Chronic kidney disease
Heart failure with preserved ejection fraction
Hypertension
Hyperlipidemia
Hx DVT
Hysterectomy
s/p breast augmentation
s/p exploratory laparoscopy for endometriosis
Appendectomy
B/l knee replacements
Plan
Currently placed on 2L satting 95%, wean to off as tolerated
She has been seen in our office in the past with spirometry (12/2023) showing no evidence for airflow obstruction and 6-minute walk testing demonstrating no hypoxemia
There is chronic SOB in her record with prior admissions, unclear etiology but likely due to BMI/sedentary lifestyle/deconditioning
Asthma is a possibility (on one attempt her ratio fell below 0.7)
She notes that frequently she has chest congestion and takes Mucinex at home.
CXR clear on admission
She has some mild ronchi on exam, cough/non-productive
Would check sputum culture for now
PCT would likely be high in setting of UTI
Micro this far reviewed--
Urine culture + E. coli
Sputum pending
Flu negative
Placed on empiric abx but could de-escalate pending culture data
She is placed on IV steroids, but not wheezing on exam
She has no prior obstructive lung disease on spirometry, I am not sure what the role of steroids is
Continue mucinex, airway clearance
She is on Duonebs QID, continue for now
Will add Advair to see if this helps with cough
Prior echocardiogram showed no significant RV dysfunction
proBNP 300
Other possibility for SOB is compensation for metabolic acidosis from urosepsis
Check ABG to see if there is resp alkalosis
She does see at risk for OSAS, would eval as OP
Aggressive rehab while inpatient
Incentive spirometry
Continue physical therapy as able.
Continue mucolytic's
Acapella device, encourage.
Continue oxygen supplementation to maintain pulse ox above 90%.
Evaluate O2 needs PTD
Will need pulmonary follow-up after discharge. Information will be left in the chart.
Last seen 12/2023, has appt 01/07/[address] Canales
We will follow
Diagnostic Data
Chest X-Ray: 12/08/24-No acute cardiopulmonary process.
CT Scan: CHEST 03/17/24- No acute disease of the chest. Large gallstone. Probable calcification of the left kidney possibly associated with a left renal mass. Dedicated CT of the kidneys pre- and post-IV contrast recommended. Tiny pericardial effusion
AP 04/20/24- 1. Punctate bilateral nephrolithiasis. No CT evidence for a suspicious renal or urothelial lesion.
2. Cholelithiasis.
3. Colonic diverticulosis.
4. Severe aortobiiliac calcified atherosclerosis.
Echocardiogram 11/26/2023: Normal LVEF. No significant valvular abnormalities.
Lower extremity Dopplers: Showed acute thrombus within the right common femoral and femoral veins.
PFT's: 12/25/23- FEV1 1.74L 103%, FVC 2.26L 99%, ratio 0.76
Reports and relevant images were personally reviewed.
Total time spent on this consultation/encounter __75__ minutes which includes review of history, physical exam, medications, laboratory data, personal review of imaging, extensive review of outpatient records, discussion with care team and
respiratory therapy.
[2024-12-10 09:45] LABS: Blood Urea Nitrogen 50 mg/dl (7-17); Calcium 8.9 mg/dl (8.4-10.2); Carbon Dioxide 12 mmol/L (22-30); Chloride 107 mmol/L (98-107); Estimated Creatinine Clearance 30 ml/min; Glucose 129 mg/dl (70-99); Magnesium 2.6 mg/dl (1.6-2.3); Phosphorus 4.2 mg/dl (2.5-4.5); Potassium 5.1 mmol/L (3.5-5.1); Sodium 134 mmol/L (135-145); eGFR 39.55
[2024-12-10] MEDS: MIRALAX 17 GRAMS PO (10:40)
[2024-12-10] MEDS: SENOKOT-S 1 TABLET PO ×2 (10:40→19:57)
[2024-12-10] MEDS: SODIUM BICARBONATE 1150 MEQ IV (10:42)
[2024-12-10 12:23] LABS: Blood Urea Nitrogen 51 mg/dl (7-17); Calcium 9.1 mg/dl (8.4-10.2); Carbon Dioxide 18 mmol/L (22-30); Chloride 101 mmol/L (98-107); Estimated Creatinine Clearance 28 ml/min; Glucose 138 mg/dl (70-99); Potassium 4.4 mmol/L (3.5-5.1); Sodium 135 mmol/L (135-145); eGFR 36.19
[2024-12-10 13:54] VITALS: BP 93/60; PULSE 85; O2SAT 92
[2024-12-10 14:05] VITALS: BP 93/60; PULSE 85; O2SAT 92
[2024-12-10 14:13] LABS: HCO3 18.2 mmol/L (21-28); O2 Saturation % 97.4 % (94-98); PCO2 25 mmHg (32-35); PO2 73 mmHg (83-108); pH 7.47 (7.35-7.45)
[2024-12-10 15:32] VITALS: BP 111/71
[2024-12-10] MEDS: ADVAIR HFA 230/21 MCG INHALER 2 PUFF INH (19:38)
[2024-12-10] MEDS: SODIUM BICARBONATE 650 MG PO (21:44)
[2024-12-10 23:00] VITALS: BP 121/56
[2024-12-11 07:05] VITALS: BP 93/62
--- NOTE | 2024-12-11 07:20 | W.PN.HOSP.TC ---
Today's Communication/Plan
-
Home Oxygen assessment
Wean O2 supplementation as tolerated
Antihypertensives holding parameters updated
cont bowel regimen
start renally dosed Augmentin for possible UTI
Assessment / Plan
Assessment / Plan
Physical Exam
General: No acute distress. Appears Comfortable at this time
HEENT: NormoCephalic, Moist mucous membranes and Atraumatic
Respiratory: Clear to auscultation b/l remains on nasal cannula 2L low dose
Cardiac: S1/S2 and Regular Rhythm; No Murmur, Rub or Gallop
GI: Soft, Non Tender, Non Distended and Normal Bowel Sounds; No Organomegaly
Musculoskeletal: No Clubbing, No Cyanosis and No Edema
Skin: No Rash
Neuro: Awake, Alert and Nonfocal/grossly intact
Psych: Calm and Intact Judgment/Insight
89F HFpEF CAD HTN HLD hx DVT Eliquis here with hypoxia requiring 2L nasal cannula, suspect post-viral upper respiratory illness- reported URI symptoms for the past 2-3 wks.
#shortness of breath with hypoxia
#Suspect Post-viral upper respiratory illness, possible Bronchitis
#Exertional Dyspnea
CXR: No acute cardiopulmonary process.
- DuoNeb ATC and PRN
- No wheezing, IV Decadron discontinued as per pulm
- O2 PRN titrate as needed to maintain SpO2 >93%, wean as tolerated
- Mucinex
- Incentive Spirometer, Acapella, VEST
- 12/11/24 home oxygen assessment appreciated no need
#HFpEF
BNP 318
ECHO (10/11/2024): Technically difficult study. Consider use of IV echo contrast for future studies.
Normal left ventricular size and systolic function.
Left ventricular ejection fraction visually estimated 55-60%
No significant valvular disease.
Compared to prior study dated 11/26/2023, no significant change
- daily weights
- continue ezetimibe, furosemide, and potassium chloride
Constipation
-bowel regimen Miralax Senna Colace
Urine Cx pos w/ E. coli
-denies dysuria though reports foul smelling urine
-Augmentin renally dosed started
#Regarding Abnormal EKG
-EKGs done here 12.08.24 appeared relatively similar to EKGs done 11.26.23, no significant changes were noted
-chest pain free, negative troponin, BNP unremarkable
-case was discussed with patient's outpt Admitting Officer Dr Vargas who recommended patient continue with her prior scheduled follow up appt in Dec
#CAD
hx cardiac stents x2
- continue clopidogrel
#hx hypertension
#Low normotensive pressure
-diltiazem doxazosin and lasix held d/t low pressures 12/11/24 in AM
-holding parameters updated and medications continued to start with next scheduled dose 12/12/24 AM
#hyperlipidemia
- continue atorvastatin
#Hx DVT
- continue Eliquis BID
#GERD
- continue pantoprazole
Code status: Full code
DVT Prophylaxis: Eliquis
Discussed with patient and patient's daughter Danielle
I spent a total of 45 minutes with the patient or on the floor. More than 50% of this time involved counseling and coordination of care.
Anticipated Discharge: Within 24 hours
Subjective/Interval History
-
Date of Service: December 11, 2024
Constipation resolved though stools remain hard. Denies dysuria but reports foul smelling urine. Patient also reports hard nodules on her labia present for months (outpt follow up with child care coordinator recommended).
Objective Data
-
Labs:
Laboratory Results
12/11/24
06:26
WBC Pending
Hgb Pending
Hct Pending
Plt Count Pending
Sodium Pending
Potassium Pending
Chloride Pending
Carbon Dioxide Pending
BUN Pending
Creatinine Pending
Glucose Pending
Calcium Pending
Vital Signs:
Vital Signs
Temp Pulse Resp BP Pulse Ox
97.8 F 85 18 121/56 94
12/10/24 23:00 12/10/24 23:00 12/10/24 23:00 12/10/24 23:00 12/10/24 23:00
I&O
12/10/24 12/11/24 12/12/24
06:59 06:59 06:59
Intake Total 1320 / 1320 1839
Output Total 350 / 350
Balance 970 / 970 1839
[2024-12-11 07:22] LABS: Hemoglobin 11.5 g/dL (12.0-16.0); Mean Corp Hgb Conc. 33.8 g/dL (33.0-37.0); Mean Corpuscular Hgb 32.6 pg (27.0-31.0); Mean Corpuscular Volume 96.3 fL (81.0-99.0); Mean Platelet Volume 10.5 fL (7.4-10.4); Platelet Count 160 10^3/uL (130-400); Red Blood Cell Count 3.53 10^6/uL (4.20-5.40); Red Cell Dist. Width 14.4 % (11.5-14.5); White Blood Cell Count 11.8 10^3/uL (4.8-10.8)
[2024-12-11] MEDS: DUONEB 3 ML INH ×4 (07:36→19:33)
[2024-12-11] MEDS: ADVAIR HFA 230/21 MCG INHALER 2 PUFF INH ×2 (07:36→19:33)
[2024-12-11 07:49] LABS: Blood Urea Nitrogen 47 mg/dl (7-17); Calcium 8.4 mg/dl (8.4-10.2); Carbon Dioxide 23 mmol/L (22-30); Chloride 104 mmol/L (98-107); Estimated Creatinine Clearance 33 ml/min; Glucose 115 mg/dl (70-99); Magnesium 2.5 mg/dl (1.6-2.3); Phosphorus 4.1 mg/dl (2.5-4.5); Potassium 4.4 mmol/L (3.5-5.1); Sodium 138 mmol/L (135-145); eGFR 43.54
[2024-12-11] MEDS: PLAVIX 75 MG PO (09:00)
[2024-12-11] MEDS: ZETIA 10 MG PO (09:00)
[2024-12-11] MEDS: PROTONIX 40 MG PO (09:00)
[2024-12-11] MEDS: KCL 20 MEQ PO (09:01)
[2024-12-11] MEDS: ELIQUIS 5 MG PO ×2 (09:05→19:59)
[2024-12-11] MEDS: SENOKOT-S 1 TABLET PO ×2 (09:06→19:59)
[2024-12-11] MEDS: MUCINEX 1200 MG PO ×2 (09:06→19:59)
[2024-12-11] MEDS: ZYLOPRIM 100 MG PO (09:08)
[2024-12-11] MEDS: THERAGRAN 1 TABLET PO (09:08)
[2024-12-11] MEDS: SODIUM BICARBONATE 650 MG PO ×3 (09:09→21:35)
[2024-12-11] MEDS: VITAMIN C 500 MG PO (09:09)
[2024-12-11] MEDS: LIPITOR 20 MG PO (09:09)
[2024-12-11] MEDS: MIRALAX 17 GRAMS PO (09:10)
--- NOTE | 2024-12-11 09:40 | W.PN.PUL3 ---
Today's Communication / Plan
-
Antibiotics for UTI
Advair for cough + DuoNebs
Start Tessalon Perles and [place] spray
Mucinex, can stop if cough remains dry
Up OOB as tolerated
PT/OT
Encourage incentive spirometer
Check ambulatory pulse oximetry prior to discharge
Outpatient follow-up will be arranged to discuss sleep disordered breathing and possibly cough variant asthma
Pulmonary service will continue to follow along
Assessment
-
Patient is an 89-year-old female with previous history of heart failure, CAD, hypertension presenting to ER for upper respiratory infection symptoms for approximately 2 to 3 weeks prior to presentation. She notes increasing shortness of breath,
cough at night, chest pressure. Chest x-ray demonstrating no acute process. Currently has evidence for UTI. We are consulted for possible bronchitis.
Impression:
UTI
Cough/shortness of breath-improved, was likely due to metabolic acidosis from sepsis causing increased resp compensation
Chronic shortness of breath: Suspect due to deconditioning/recovering pneumonia, spirometry as OP normal
Bilateral nephrolithiasis on CT
Chronic rhinitis
Conditions present prior admission:
Influenza A+ requiring hospitalization
Recent pneumonia, hospitalized [facility], discharged 11/03/23
Coronary disease with stents �2 in September 2023, [facility]
Chronic kidney disease
Heart failure with preserved ejection fraction
Hypertension
Hyperlipidemia
Hx DVT
Hysterectomy
s/p breast augmentation
s/p exploratory laparoscopy for endometriosis
Appendectomy
B/l knee replacements
Plan
Currently placed on RA satting 93% - maintain SpO2>90%
She has been seen in our office in the past with spirometry (12/2023) showing no evidence for airflow obstruction and 6-minute walk testing demonstrating no hypoxemia
There is chronic SOB in her record with prior admissions, unclear etiology but likely due to BMI/sedentary lifestyle/deconditioning
Asthma is a possibility (on one attempt her ratio fell below 0.7)
She notes that frequently she has chest congestion and takes Mucinex at home.
CXR clear on admission
She had some mild ronchi on exam - today (12/11) she is clear; cough is mainly dry
Would check sputum culture if she can produce a decent sample
PCT would likely be high in setting of UTI
Micro this far reviewed--
Urine culture + E. coli (pansensitive)
Sputum pending
Flu negative
Placed on empiric abx but could de-escalate pending culture data -currently on Augmentin
She is placed on IV steroids, but not wheezing on exam
She has no prior obstructive lung disease on spirometry, I am not sure what the role of steroids is
Continue mucinex, airway clearance
She is on Duonebs QID, continue for now
Continue Advair to see if this helps with cough
Prior echocardiogram showed no significant RV dysfunction
proBNP 318 on 12/08/2024
Other possibility for SOB is compensation for metabolic acidosis from urosepsis
Blood gas on 12/10/2024 shows respiratory alkalosis
She does see at risk for OSAS, would eval as OP
Aggressive rehab while inpatient
Incentive spirometry
Continue physical therapy as able.
Continue mucolytics as needed
Will add ocean nasal spray QID
Acapella device, encourage.
Continue oxygen supplementation to maintain pulse ox above 90%.
Evaluate O2 needs PTD
Will need pulmonary follow-up after discharge. Information will be left in the chart.
Last seen 12/2023, has appt 01/07/[address] Canales
We will follow
Diagnostic Data
Chest X-Ray: 12/08/24-No acute cardiopulmonary process.
CT Scan: CHEST 03/17/24- No acute disease of the chest. Large gallstone. Probable calcification of the left kidney possibly associated with a left renal mass. Dedicated CT of the kidneys pre- and post-IV contrast recommended. Tiny pericardial effusion
AP 04/20/24- 1. Punctate bilateral nephrolithiasis. No CT evidence for a suspicious renal or urothelial lesion.
2. Cholelithiasis.
3. Colonic diverticulosis.
4. Severe aortobiiliac calcified atherosclerosis.
Echocardiogram 11/26/2023: Normal LVEF. No significant valvular abnormalities.
Lower extremity Dopplers: Showed acute thrombus within the right common femoral and femoral veins.
PFT's: 12/25/23- FEV1 1.74L 103%, FVC 2.26L 99%, ratio 0.76
Reports and relevant images were personally reviewed.
Total time spent on this consultation/encounter __36__ minutes which includes review of history, physical exam, medications, laboratory data, personal review of imaging, extensive review of outpatient records, discussion with care team and
respiratory therapy.
Subjective Data
-
Date of Service:
Date of Service: December 11, 2024
Chief Complaint: Pulmonary Follow Up
Subjective:
Patient was seen and evaluated this morning (late note entry). She feels okay overall, currently breathing comfortably on room air. Saturating 93%. Still has a dry cough with frequent coughing spells especially when she tries to move. Has nasal
stuffiness as well. Currently denies chest pain, MENDES, nausea, fevers or chills.
Review of Systems
General: Other (Negative unless mentioned above)
Objective Data
Data Reviewed
Vital Signs / I&O / Oxygen:
Vital Signs
Temp Pulse Resp BP Pulse Ox
97.8 F 85 18 121/56 94
12/10/24 23:00 12/10/24 23:00 12/10/24 23:00 12/10/24 23:00 12/10/24 23:00
Intake and Output
12/10/24 12/11/24 12/12/24
06:59 06:59 06:59
Intake Total 1320 / 1320 184 / 1840
Output Total 350 / 350
Balance 970 / 970 1840 / 1840
SaO2 94
Nasal Cannula flow liters per 2
minute
Physical Exam
General: Respiratory Distress (negative), Comfortable, Chills (negative) and Sweats (negative)
HEENT: Normocephalic and Anicteric
Cardiovascular: S1-S2, Murmur (negative), Peripheral Edema (Trace lower extremity edema bilaterally) and Other (Distant heart sounds due to body habitus)
Respiratory: Clear, Wheeze (negative), Crackles (negative), Rhonchi (negative), Non-Labored Respirations and Stridor (negative)
GI: Soft, Non Distended, Non Tender and Normal Bowel Sounds
Neurology: AO x 3 and Tremors (negative)
Skin: Warm, Dry, Cyanosis (negative) and Jaundice (negative)
Labs/Micro/Reports
Lab Data
12/11/24 06:26
Laboratory Results
12/10/24
13:55
pH 7.47 H
pCO2 25 L
pO2 73 L
HCO3 18.2 L
O2 Delivery Level
Microbiology
12/08/24 21:06 Urine Urine Culture - Preliminary
Escherichia coli
12/08/24 14:21 Nasal Swab Influenza Types A & B (SIL[facility]STRE) - Final
Negative for Influenza A & B, NAAT
Negative results must be combined with clinical observations
and patient history.
Nucleic Acid Amplification test (NAAT)performed on the
[employer] platform.
[2024-12-11] MEDS: LASIX PO (10:00)
[2024-12-11] MEDS: CARDURA PO (10:00)
[2024-12-11] MEDS: CARDIZEM CD PO (10:00)
[2024-12-11 10:24] VITALS: BP 116/57
[2024-12-11] MEDS: AUGMENTIN 500 MG/125 MG 1 TABLET PO ×2 (12:47→20:03)
[2024-12-11 14:43] VITALS: BP 114/76
[2024-12-11] MEDS: TESSALON PERLES 200 MG PO ×2 (16:10→21:35)
[2024-12-11] MEDS: OCEAN, SALINE MIST 2 SPRAYS NASAL ×2 (17:15→21:36)
[2024-12-11 23:38] VITALS: BP 113/76
[2024-12-12 06:00] VITALS: BMI 29.8
[2024-12-12 06:30] VITALS: BP 160/79
--- NOTE | 2024-12-12 06:40 | PTCARENOTE ---
Pt woke up c/o heaviness and pain in her arms. Pt asking to get to bedside commode, able to with min assist. Pt also c/o nausea. bp 160/79 HR 88. pt states she has had this feeling before and thinks it was what brought her to the Dr. MONTANO
Farnaz notified and orders in for EKG and zofran. pt doesn't want to take zofran at this time.
--- NOTE | 2024-12-12 06:48 | W.PN.UPDATE ---
Update Note
Progress Note Update
pt awoke this am with bilateral 'arm heaviness.' and nausea.
On admit She reports an episodes of being woken from her sleep with chest pressure that radiated to bilateral arms as well.
EKG no ischemic changes. Will check troponin for completeness
[2024-12-12 07:16] LABS: Hematocrit 36.6 % (37.0-47.0); Hemoglobin 12.4 g/dL (12.0-16.0); Mean Corp Hgb Conc. 33.9 g/dL (33.0-37.0); Mean Corpuscular Hgb 32.8 pg (27.0-31.0); Mean Corpuscular Volume 96.8 fL (81.0-99.0); Platelet Count 149 10^3/uL (130-400); Red Blood Cell Count 3.78 10^6/uL (4.20-5.40); Red Cell Dist. Width 14.6 % (11.5-14.5); White Blood Cell Count 9.1 10^3/uL (4.8-10.8)
[2024-12-12 07:25] VITALS: BP 157/75
[2024-12-12] MEDS: DUONEB 3 ML INH ×4 (07:40→21:30)
[2024-12-12] MEDS: ADVAIR HFA 230/21 MCG INHALER INH ×2 (07:40→07:59)
[2024-12-12 07:42] LABS: Troponin I 0.017 ng/ml
[2024-12-12 07:48] LABS: Blood Urea Nitrogen 37 mg/dl (7-17); Calcium 8.8 mg/dl (8.4-10.2); Carbon Dioxide 24 mmol/L (22-30); Chloride 106 mmol/L (98-107); Estimated Creatinine Clearance 33 ml/min; Glucose 83 mg/dl (70-99); Magnesium 2.6 mg/dl (1.6-2.3); Phosphorus 3.5 mg/dl (2.5-4.5); Potassium 4.5 mmol/L (3.5-5.1); Sodium 138 mmol/L (135-145); eGFR 43.54
--- NOTE | 2024-12-12 07:50 | W.PN.HOSP.TC ---
Today's Communication/Plan
-
Cardio eval
Check Nocturnal Saturation Study
cont bowel regimen
cont home antihypertensives with holding parameters
Assessment / Plan
Assessment / Plan
Physical Exam
General: No acute distress. Appears Comfortable at this time
HEENT: NormoCephalic, Moist mucous membranes and Atraumatic
Respiratory: Clear to auscultation
Cardiac: S1/S2 and Regular Rhythm; No Murmur, Rub or Gallop
GI: Soft, Non Tender, Non Distended and Normal Bowel Sounds; No Organomegaly
Musculoskeletal: No Clubbing, No Cyanosis and No Edema
Skin: No Rash
Neuro: AOx3 conversant coherent
Psych: Calm and Intact Judgment/Insight
89F HFpEF CAD HTN HLD hx DVT Eliquis here with hypoxia requiring 2L nasal cannula, suspect post-viral upper respiratory illness- reported URI symptoms for the past 2-3 wks.
#shortness of breath with hypoxia
#Suspect Post-viral upper respiratory illness, possible Bronchitis
#Exertional Dyspnea
CXR: No acute cardiopulmonary process.
- DuoNeb ATC and PRN
- No wheezing, IV Decadron discontinued as per pulm
- O2 PRN titrate as needed to maintain SpO2 >93%, wean as tolerated
- Mucinex
- Incentive Spirometer, Acapella, VEST
- 12/11/24 home oxygen assessment appreciated no need
-checking Nocturnal saturation study
#CAD hx cardiac stents x2
#Intermittent chest tightness, discomfort radiating to arms, intermittent sob
- continue clopidogrel
-question possible angina vs arrythmia contributing to symptoms
-Cardio eval requested
#Metabolic Acidosis Resolved
Bicarb supplementation completed
#HFpEF
BNP 318
ECHO (10/11/2024): Technically difficult study. Consider use of IV echo contrast for future studies.
Normal left ventricular size and systolic function.
Left ventricular ejection fraction visually estimated 55-60%
No significant valvular disease.
Compared to prior study dated 11/26/2023, no significant change
- daily weights
- continue ezetimibe, furosemide, and potassium chloride
Constipation
-bowel regimen Miralax Senna Colace
Urine Cx pos w/ E. coli
-denies dysuria though reports foul smelling urine
-Augmentin renally dosed, ordered for 5 days
#hx hypertension
#Low normotensive pressure
-diltiazem doxazosin and lasix held d/t low pressures 12/11/24 in AM
-holding parameters updated and medications continued to start with next scheduled dose 12/12/24 AM
-low pressure since resolved, home antihypertensives continued as above
#Hx Kidney Stones
-cont home doxazosin
#hyperlipidemia
- continue atorvastatin
#Hx DVT
- continue Eliquis BID
#GERD
- continue pantoprazole
Code status: Full code
DVT Prophylaxis: Eliquis
Discussed with patient and patient's daughter Danielle
I spent a total of 45 minutes with the patient or on the floor. More than 50% of this time involved counseling and coordination of care.
Anticipated Discharge: Within 24 hours
Subjective/Interval History
-
Date of Service: December 12, 2024
Reported on waking chest tightness this AM with associate radiation b/l arms. EKG noted fascicular block possible artifact lead arm reversal. Troponin though wnl was noted elevated from prior troponin values (0.017 in comparison with consistent
undetectable levels <0.012 as noted on 12/08/24). Troponin since trended down, and patient's symptom since resolved. Patient continues to report exertional dyspnea
Objective Data
-
Labs:
Laboratory Results
12/12/24
07:05
WBC 9.1
Hgb 12.4
Hct 36.6 L
Plt Count 149
Sodium 138
Potassium 4.5
Chloride 106
Carbon Dioxide 24
BUN 37 H
Creatinine 1.2 H
Glucose 83
Calcium 8.8
Vital Signs:
Vital Signs
Temp Pulse Resp BP Pulse Ox
98.1 F 69 16 160/79 96
12/11/24 23:38 12/12/24 07:44 12/12/24 07:44 12/12/24 06:30 12/12/24 07:44
I&O
12/11/24 12/12/24 12/13/24
06:59 06:59 06:59
Intake Total 1839 700 / 700
Balance 1839 700 / 700
[2024-12-12] MEDS: TESSALON PERLES 200 MG PO ×3 (09:13→21:08)
[2024-12-12] MEDS: MUCINEX 1200 MG PO ×2 (09:14→20:33)
[2024-12-12] MEDS: CARDIZEM CD 180 MG PO (09:14)
[2024-12-12] MEDS: LIPITOR 20 MG PO (09:15)
[2024-12-12] MEDS: CARDURA 0.5 MG PO (09:15)
[2024-12-12] MEDS: AUGMENTIN 500 MG/125 MG 1 TABLET PO ×2 (09:16→20:33)
[2024-12-12] MEDS: THERAGRAN 1 TABLET PO (09:16)
[2024-12-12] MEDS: ZETIA 10 MG PO (09:16)
[2024-12-12] MEDS: PROTONIX 40 MG PO (09:16)
[2024-12-12] MEDS: KCL 20 MEQ PO (09:17)
[2024-12-12] MEDS: VITAMIN C 500 MG PO (09:17)
[2024-12-12] MEDS: SODIUM BICARBONATE 650 MG PO ×2 (09:17→16:50)
[2024-12-12] MEDS: ZYLOPRIM 100 MG PO (09:17)
[2024-12-12] MEDS: PLAVIX 75 MG PO (09:18)
[2024-12-12] MEDS: SENOKOT-S 1 TABLET PO ×2 (09:18→20:36)
[2024-12-12] MEDS: ELIQUIS 5 MG PO ×2 (09:18→20:33)
[2024-12-12] MEDS: LASIX 20 MG PO (09:19)
[2024-12-12] MEDS: MIRALAX 17 GRAMS PO (09:19)
[2024-12-12] MEDS: OCEAN, SALINE MIST NASAL (09:22)
--- NOTE | 2024-12-12 09:59 | W.PN.PUL3 ---
Today's Communication / Plan
-
Antibiotics for UTI
Advair for cough + DuoNebs
Tessalon Perles and [place] spray
Mucinex, can stop if cough remains dry
Up OOB as tolerated
PT/OT
Encourage incentive spirometer
Check ambulatory pulse oximetry prior to discharge if resting SaO2 <96% on room air
Outpatient follow-up will be arranged to discuss sleep disordered breathing and possibly cough variant asthma � has appointment with Dr. Canales on 01/07/2025 at 9 AM
Pulmonary service will continue to follow along
Assessment
-
Patient is an 89-year-old female with previous history of heart failure, CAD, hypertension presenting to ER for upper respiratory infection symptoms for approximately 2 to 3 weeks prior to presentation. She notes increasing shortness of breath,
cough at night, chest pressure. Chest x-ray demonstrating no acute process. Currently has evidence for UTI. We are consulted for possible bronchitis.
Impression:
UTI
Cough/shortness of breath-improved, was likely due to metabolic acidosis from sepsis causing increased resp compensation
Chronic shortness of breath: Suspect due to deconditioning/recovering pneumonia, spirometry as OP normal
Bilateral nephrolithiasis on CT
Chronic rhinitis
Conditions present prior admission:
Influenza A+ requiring hospitalization
Recent pneumonia, hospitalized [facility], discharged 11/03/23
Coronary disease with stents �2 in September 2023, [facility]
Chronic kidney disease
Heart failure with preserved ejection fraction
Hypertension
Hyperlipidemia
Hx DVT
Hysterectomy
s/p breast augmentation
s/p exploratory laparoscopy for endometriosis
Appendectomy
B/l knee replacements
Plan
Currently on RA satting 95% - maintain SpO2>90%
She has been seen in our office in the past with spirometry (12/2023) showing no evidence for airflow obstruction or restriction, and 6-minute walk testing demonstrating no hypoxemia
There is chronic SOB in her record with prior admissions, unclear etiology but likely due to BMI/sedentary lifestyle/deconditioning
Asthma is a possibility (on one attempt her ratio fell below 0.7)
She notes that frequently she has chest congestion and takes Mucinex at home.
CXR clear on admission
She had some mild rhonchi on exam - has been clear since 12/11; cough is mainly dry
Would check sputum culture if she can produce a decent sample
PCT would likely be high in setting of UTI
Micro this far reviewed--
Urine culture + E. coli (pansensitive)
Sputum pending
Flu negative
Placed on empiric abx but could de-escalate pending culture data - remains on Augmentin
She is s/p decadron from 12/08 - 12/10/2024
Currently not wheezing
She has no prior obstructive lung disease on spirometry
Continue mucinex, airway clearance
She is on Duonebs QID, continue for now
Continue Advair to see if this helps with cough
Tessalon perlananda
Prior echocardiogram showed no significant RV dysfunction
proBNP 318 on 12/08/2024
Other possibility for SOB is compensation for metabolic acidosis from urosepsis
Blood gas on 12/10/2024 shows respiratory alkalosis
SOB has improved, its mainly her cough that she complains of now (as of 12/12/2024)
She does see at risk for OSAS, would eval as OP
Aggressive rehab while inpatient
Incentive spirometry
Continue physical therapy as able.
Continue mucolytics as needed
Started ocean nasal spray QID on 12/11
Acapella device, encourage.
Maintain pulse ox above 90%.
Evaluate O2 needs PTD if resting SaO2 is <96% on room air
Will need pulmonary follow-up after discharge. Information will be left in the chart.
Last seen 12/2023, has appt 01/07/[address] Canales at 09:00
We will follow
Diagnostic Data
Chest X-Ray: 12/08/24-No acute cardiopulmonary process.
CT Scan: CHEST 03/17/24- No acute disease of the chest. Large gallstone. Probable calcification of the left kidney possibly associated with a left renal mass. Dedicated CT of the kidneys pre- and post-IV contrast recommended. Tiny pericardial effusion
AP 04/20/24- 1. Punctate bilateral nephrolithiasis. No CT evidence for a suspicious renal or urothelial lesion.
2. Cholelithiasis.
3. Colonic diverticulosis.
4. Severe aortobiiliac calcified atherosclerosis.
Echocardiogram 11/26/2023: Normal LVEF. No significant valvular abnormalities.
Lower extremity Dopplers: Showed acute thrombus within the right common femoral and femoral veins.
PFT's: 12/25/23- FEV1 1.74L 103%, FVC 2.26L 99%, ratio 0.76
Reports and relevant images were personally reviewed.
Total time spent on this consultation/encounter __39__ minutes which includes review of history, physical exam, medications, laboratory data, personal review of imaging, extensive review of outpatient records, discussion with care team and
respiratory therapy.
Subjective Data
-
Date of Service:
Date of Service: December 12, 2024
Chief Complaint: Pulmonary Follow Up
Subjective:
Patient seen earlier this morning (late note entry). She says she had a bad night last night due to weakness in her arms, as she had difficulty sitting up to get out of bed. She continues to have coughing spells, and is breathing comfortably on
room air today. She denies chest pain, MENDES, nausea, fevers or chills
Review of Systems
General: Other (Negative unless mentioned above)
Objective Data
Data Reviewed
Vital Signs / I&O / Oxygen:
Vital Signs
Temp Pulse Resp BP Pulse Ox
98.3 F 69 16 157/75 96
12/12/24 07:25 12/12/24 07:44 12/12/24 07:44 12/12/24 07:25 12/12/24 07:44
Intake and Output
12/11/24 12/12/24 12/13/24
06:59 06:59 06:59
Intake Total 1839 700 / 700
Balance 1839 700 / 700
SaO2 96
Nasal Cannula flow liters per 2
minute
Physical Exam
General: Respiratory Distress (negative), Comfortable, Chills (negative) and Sweats (negative)
HEENT: Normocephalic and Anicteric
Cardiovascular: S1-S2, Murmur (negative), Peripheral Edema (Trace lower extremity edema bilaterally) and Other (Distant heart sounds due to body habitus)
Respiratory: Clear, Wheeze (negative), Crackles (negative), Rhonchi (negative), Non-Labored Respirations and Stridor (negative)
GI: Soft, Non Distended, Non Tender and Normal Bowel Sounds
Neurology: AO x 3 and Tremors (negative)
Skin: Warm, Dry, Cyanosis (negative) and Jaundice (negative)
Labs/Micro/Reports
Lab Data
12/12/24 07:05
12/12/24 07:05
Microbiology
12/08/24 21:06 Urine Urine Culture - Final
Escherichia coli
--- NOTE | 2024-12-12 11:45 | CON.CAR ---
Consultation
Consultation Request
Date/Time Consultation Requested: December 12 2024
Date/Time Consultation Performed: December 12 2024
Requesting Provider: Dr Mobley
Performing Provider: Dr Vargas
Reason for Consultation: Chest pain
Medical History
-
Chief Complaint: Chest pain
History of Present Illness:
She was admitted with shortness of breath with hypoxia suspected post-viral syndrome. Treated for UTI. She was on IV decadron which has been stopped by pulm. No evidence of HF. She woke up from sleep this AM and had b/l arm pain she states. She had
trop negative this AM and EKG without acute changes.
Cardiology was consulted for eval. No recurrent chest pain
Past Medical History:
CAD with PCI X 18 Sep 2023
Chronic dyspnea, seen by pulm before with neg work up
Chronic diastolic HF
Lymphedema
HTN
Hyperlipidemia
Exploratory lap for endometriosis
Hx Hysterectomy
Right Femoral DVT
Hx Renal insufficiency
Hx appendectomy
Breast implants
b/l knee replacements
Renal calculi
Social History
Tobacco: Former Smoker (Smoked a pack a week in her teens and quit 22)
Alcohol: Occasional
Drug: None
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
Family History
Family History: Reviewed & Not Pertinent
Allergies / Home Medications
Allergy/AdvReac Type Severity Reaction Status Date / Time
adhesive tape Allergy Unknown Verified 12/08/24 11:37
iodine Allergy Unknown Verified 12/08/24 11:37
povidone-iodine Allergy Unknown Verified 12/08/24 11:37
[From Betadine]
�Medication �Instructions �Recorded �Confirmed �Type
allopurinol 100 mg tablet 100 mg PO DAILY gout 11/09/23 12/08/24 History
diltiazem HCl 180 mg 180 mg PO DAILY blood pressure 11/09/23 12/08/24 History
capsule,extended release 24 hr
doxazosin 1 mg tablet 0.5 mg PO DAILY blood pressure 11/09/23 12/08/24 History
ezetimibe 10 mg tablet 10 mg PO DAILY high cholesterol 11/09/23 12/08/24 History
pantoprazole 40 mg tablet,delayed 40 mg PO DAILY Gastrointestinal 11/09/23 12/08/24 History
release Issue
polyvinyl alcohol-povidone 0.5 2 drp BOTH EYES QIDPRN PRN dry eyes 11/09/23 12/08/24 History
%-0.6 % eye drops
potassium chloride 20 mEq 20 meq PO DAILY Electrolyte 11/25/23 12/08/24 History
tablet,extended release Repletion
apixaban 5 mg tablet (Eliquis) 5 mg PO BID #60 tabs 12/02/23 12/08/24 Rx
clopidogrel 75 mg tablet 75 mg PO DAILY Blood clot 12/02/23 12/08/24 Rx
prevention/tx #30 tabs
furosemide 20 mg tablet 20 mg PO DAILY #30 tabs 12/02/23 12/08/24 Rx
ascorbic acid (vitamin C) 500 mg 500 mg PO DAILY 12/08/24 12/08/24 History
tablet (Vitamin C)
atorvastatin 20 mg tablet 20 mg PO DAILY 12/08/24 12/08/24 History
biotin 1 mg tablet 1 mg PO DAILY 12/08/24 12/08/24 History
therapeutic multivitamin 1 tab PO DAILY 12/08/24 12/08/24 History
Review of Systems
-
History Source: Patient
All other systems: Negative unless noted
Respiratory: Trouble Breathing
Cardiac: Chest Pain
Musculoskeletal: Other (b/l arm pain)
Physical Exam
Vital Signs
Temp Pulse Resp BP Pulse Ox
98.3 F 70 18 157/75 96
12/12/24 07:25 12/12/24 11:33 12/12/24 11:33 12/12/24 07:25 12/12/24 07:44
Physical Examination:
General: No acute distress, AAOX3
Neck: Negative JVD
Heart: Regular, Negative S3 positive S1/S2, Negative S4, No murmur
Lungs: CTA b/l, negative wheezes/rales/rhonchi
Abd: Positive BS, NT/ND, neg rebound/rigidity/guarding
Ext: Negative cyanosis/clubbing/edema
Neuro: nonfocal
Lab Results
12/12/24 07:05
12/12/24 07:05
Troponin I 0.017 ng/ml 12/12/24 07:05
Zos-D-Iwnstenhmvr Pept 318 pg/ml 12/08/24 11:49
Impression / Plan
-
HPI: She was admitted with shortness of breath with hypoxia suspected post-viral syndrome. She was on IV decadron which has been stopped by pulm. No evidence of HF. She woke up from sleep this AM and had b/l arm pain she states. She had trop
negative this AM and EKG without acute changes.
Cardiology was consulted for eval. No recurrent chest pain
Impression:
Atypical chest pain
Respiratory distress
CAD with PCI X 18 Sep 2023
Chronic dyspna
Chronic diastolic HF
Lymphedema
HTN
Hyperlipidemia
Hx right Femoral DVT
Hx Renal insufficiency
Echo Sep 2024: Technically difficult study. Normal left ventricular size and systolic function.
Left ventricular ejection fraction visually estimated 55-60%
No significant valvular disease.
Compared to prior study dated 11/26/2023, no significant change
Plan:
Chest pain was atypical and has resolved
EKG without acute changes
Trop negative X 2
Check limited echo to reeval EF
Recent echo reviewed.
Cont supportive care
Cont pulm toilet
Cont Eliquis for DVT
cont ASA for CAD
Outpt follow up with Dr Vargas
Data Reviewed
-
EKG: Tracing Personally Visualized and interpreted
Labs: Labs Reviewed by me
Old Records: Reviewed
[2024-12-12 12:54] LABS: Troponin I 0.013 ng/ml
[2024-12-12] MEDS: OCEAN, SALINE MIST 2 SPRAYS NASAL ×3 (13:53→21:08)
[2024-12-12 15:30] VITALS: BP 113/50
[2024-12-12] MEDS: ADVAIR HFA 230/21 MCG INHALER 2 PUFF INH (21:30)
[2024-12-12 23:18] VITALS: BP 133/66
[2024-12-13 06:00] VITALS: BMI 29.6
[2024-12-13 07:43] VITALS: BP 154/72
[2024-12-13] MEDS: ADVAIR HFA 230/21 MCG INHALER 2 PUFF INH (07:48)
[2024-12-13] MEDS: DUONEB 3 ML INH ×3 (07:48→15:44)
[2024-12-13 08:26] LABS: Hematocrit 39.9 % (37.0-47.0); Hemoglobin 13.3 g/dL (12.0-16.0); Mean Corp Hgb Conc. 33.3 g/dL (33.0-37.0); Mean Corpuscular Hgb 32.4 pg (27.0-31.0); Mean Corpuscular Volume 97.1 fL (81.0-99.0); Mean Platelet Volume 9.9 fL (7.4-10.4); Platelet Count 166 10^3/uL (130-400); Red Blood Cell Count 4.11 10^6/uL (4.20-5.40); Red Cell Dist. Width 14.8 % (11.5-14.5); White Blood Cell Count 9.6 10^3/uL (4.8-10.8)
[2024-12-13] MEDS: ELIQUIS 5 MG PO ×2 (08:52→19:19)
[2024-12-13] MEDS: SENOKOT-S 1 TABLET PO ×2 (08:52→19:20)
[2024-12-13] MEDS: PROTONIX 40 MG PO (08:52)
[2024-12-13] MEDS: KCL 20 MEQ PO (08:52)
[2024-12-13] MEDS: ZETIA 10 MG PO (08:52)
[2024-12-13] MEDS: THERAGRAN 1 TABLET PO (08:53)
[2024-12-13] MEDS: VITAMIN C 500 MG PO (08:53)
[2024-12-13] MEDS: TESSALON PERLES 200 MG PO ×2 (08:53→15:17)
[2024-12-13] MEDS: PLAVIX 75 MG PO (08:53)
[2024-12-13] MEDS: ZYLOPRIM 100 MG PO (08:53)
[2024-12-13] MEDS: CARDIZEM CD 180 MG PO (08:53)
[2024-12-13] MEDS: AUGMENTIN 500 MG/125 MG 1 TABLET PO ×2 (08:53→19:20)
[2024-12-13] MEDS: LIPITOR 20 MG PO (08:53)
[2024-12-13] MEDS: LASIX 20 MG PO (08:53)
[2024-12-13] MEDS: MUCINEX 1200 MG PO ×2 (08:53→19:20)
[2024-12-13] MEDS: CARDURA 0.5 MG PO (08:53)
[2024-12-13] MEDS: MIRALAX 17 GRAMS PO (08:54)
[2024-12-13] MEDS: OCEAN, SALINE MIST 2 SPRAYS NASAL ×3 (08:55→16:58)
[2024-12-13 08:58] LABS: Blood Urea Nitrogen 30 mg/dl (7-17); Calcium 8.8 mg/dl (8.4-10.2); Carbon Dioxide 23 mmol/L (22-30); Chloride 106 mmol/L (98-107); Estimated Creatinine Clearance 36 ml/min; Glucose 78 mg/dl (70-99); Magnesium 2.3 mg/dl (1.6-2.3); Phosphorus 3.4 mg/dl (2.5-4.5); Potassium 4.2 mmol/L (3.5-5.1); Sodium 138 mmol/L (135-145); eGFR 48.33
--- NOTE | 2024-12-13 09:54 | W.PN.CARDCBS ---
Addendum entered and electronically signed by Marques Small MD 12/13/24 11:32:
I saw and examined the patient.
The GLASS PRESSER or PA's note was reviewed and I agree with the note.
Comment: General: Well developed, well nourished in NAD.
Neck: Supple, no JVD, HJR, carotids +2 B/L, no bruits bilaterally.
Heart: Non displaced PMI, RRR, no murmurs, No S3, S4, no rubs.
Lungs: Scattered rhonchi
Extremities: No clubbing, cyanosis or edema bilaterally.
Neuro: Grossly nonfocal, awake, alert and oriented x3.
Chest pain likely noncardiac. EKG and troponins okay. Check follow-up echo to reassess ejection fraction and if okay will be stable for discharge from cardiology viewpoint.
Original Note:
Today's Communication / Plan
-
No further chest pain
Troponin negative
Follow up echo today to reassess EF
If echo stable, ok for discharge w/ OP cardiology follow up arranged.
Impression / Plan
-
PCP: Dr. Benites
Cardiology: Dr. Vargas
Impression:
Atypical chest pain
Respiratory distress
CAD with PCI X 18 Sep 2023
Chronic dyspnea
Chronic diastolic HF
Lymphedema
HTN
Hyperlipidemia
Hx right Femoral DVT
Hx Renal insufficiency
Echo 10/11/2024: EF 55-60%, no significant valvular disease
Echo 12/13/2023: Limited study to assess echo, study pending.
Plan:
-Presented with hypoxia and SOB. Suspected post-viral syndrome.
-Cardiology consulted for eval of atypical chest pain. No recurrence.
-ECG without acute changes.
-Troponin negative x4.
-Limited echo pending 12/13 to reassess EF.
-If echo stable, ok for discharge.
-Appears stable otherwise from a cardiac standpoint. Continue current medications.
-Follow up arranged.
HPI: She was admitted with shortness of breath with hypoxia suspected post-viral syndrome. She was on IV decadron which has been stopped by pulm. No evidence of HF. She woke up from sleep this AM and had b/l arm pain she states. She had trop
negative this AM and EKG without acute changes.
Cardiology was consulted for eval. No recurrent chest pain
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
Subjective
Date of Service: December 13, 2024
No further chest pain
Objective
Labs:
12/13/24 07:56
12/13/24 07:56
Labs
Hgb 13.3 g/dL (12.0-16.0) 12/13/24 07:56
Hct 39.9 % (37.0-47.0) 12/13/24 07:56
Plt Count 166 10^3/uL (130-400) 12/13/24 07:56
Sodium 138 mmol/L (135-145) 12/13/24 07:56
Potassium 4.2 mmol/L (3.5-5.1) 12/13/24 07:56
BUN 30 mg/dl (7-17) H 12/13/24 07:56
Creatinine 1.1 mg/dL (0.6-1.0) H 12/13/24 07:56
Glucose 78 mg/dl (70-99) 12/13/24 07:56
Troponins
12/12/24 12/12/24 12/12/24
07:05 11:53 12:19
Troponin I 0.017 Cancelled 0.013
Vital Signs and I&O:
Vital Signs
Temp Pulse Resp BP Pulse Ox
98.3 F 84 18 154/72 92
12/13/24 07:43 12/13/24 07:53 12/13/24 07:53 12/13/24 07:43 12/13/24 07:53
Vital Signs
Temp Pulse Resp BP Pulse Ox
98.3 F 84 18 154/72 92
12/13/24 07:43 12/13/24 07:53 12/13/24 07:53 12/13/24 07:43 12/13/24 07:53
Intake & Output
12/11/24 12/12/24 12/13/24 12/14/24
06:59 06:59 06:59 06:59
Intake Total 1840 / 1840 700 / 700 550 / 550 480 / 480
Balance 1840 / 1840 700 / 700 550 / 550 480 / 480
Physical Exam
Physical Exam
GEN: No distress, awake, alert, oriented x3
HEENT: supple, anicteric, mmm
LUNGS: CTA b/l, no wheezes/rales
CV: Reg, S1/S2, no murmur
EXT: No clubbing, cyanosis, or edema
NEURO: Gross non-focal
SKIN: Warm, dry, no rash
--- NOTE | 2024-12-13 12:35 | VNURNOTE ---
Home Health Liaison met with patient at bedside to discuss [facility] nurse/therapy, visits, schedule and homebound status. Patient is agreeable and understands that visits at home will be 2-3 x per week to assess and teach medical management. [facility]
brochure provided with contact information. Spoke with patient's daughter Danielle, who is also agreeable to [facility]. Both are aware that [facility] will contact them for start of care in 1-2 days after discharge from . New home nocturnal 02 through
[employer]. Patient is agreeable to home 02 set up. [facility] referral completed in [facility].
--- NOTE | 2024-12-13 12:46 | CM ---
Chart reviewed and supervisor case loading met with patient and patient is [place], plan is to home today, patient is off continuous oxygen but does qualify for nocturnal oxygen, recommendation is for visiting nurses, options review with patient and patient has
selected [facility].
Plan; Home with [facility] and nocturnal oxygen from [facility].
--- NOTE | 2024-12-13 14:20 | W.PN.PUL3 ---
Today's Communication / Plan
-
Continue inhaler until seen in my office for possible cough variant asthma.
Continue antitussives
Continue to DuoNebs while in the hospital
Continue Mucinex
patient will be discharged on nocturnal supplemental oxygen
Sleep study recommended in the outpatient
Hopefully discharge planning soon
No additional recommendation from the pulmonary perspective
Sign off
Assessment
-
Patient is an 89-year-old female with previous history of heart failure, CAD, hypertension presenting to ER for upper respiratory infection symptoms for approximately 2 to 3 weeks prior to presentation. She notes increasing shortness of breath,
cough at night, chest pressure. Chest x-ray demonstrating no acute process. Currently has evidence for UTI. We are consulted for possible bronchitis.
Impression:
UTI
Cough/shortness of breath-improved, was likely due to metabolic acidosis from sepsis causing increased resp compensation
Chronic shortness of breath: Suspect due to deconditioning/recovering pneumonia, spirometry as OP normal
Bilateral nephrolithiasis on CT
Chronic rhinitis
Conditions present prior admission:
Influenza A+ requiring hospitalization
Recent pneumonia, hospitalized [place], discharged 11/03/23
Coronary disease with stents �2 in September 2023, [place]
Chronic kidney disease
Heart failure with preserved ejection fraction
Hypertension
Hyperlipidemia
Hx DVT
Hysterectomy
s/p breast augmentation
s/p exploratory laparoscopy for endometriosis
Appendectomy
B/l knee replacements
Plan
Currently on RA satting 95% - maintain SpO2>90%
With ambulation only down to 89%. 12/11/2024
Patient will be discharged on nocturnal oxygen. Sleep study will be recommended in the outpatient setting.
-
She has been seen in our office in the past with spirometry (12/2023) showing no evidence for airflow obstruction or restriction, and 6-minute walk testing demonstrating no hypoxemia
There is chronic SOB in her record with prior admissions, unclear etiology but likely due to BMI/sedentary lifestyle/deconditioning
Asthma is a possibility (on one attempt her ratio fell below 0.7)
Not in respiratory distress, able to speak in full sentences
Patient states that the cough is slowly improving
No oxygen supplementation required.
-
She notes that frequently she has chest congestion and takes Mucinex at home.
CXR clear on admission
She had some mild rhonchi on exam - has been clear since 12/11; cough is mainly dry
Unable to produce sputum.
Afebrile.
Doubt acute infection.
Micro this far reviewed--
Urine culture + E. coli (pansensitive)
Sputum pending
Flu negative
On Augmentin per primary team.
From the pulmonary perspective cough is her main symptom. This could be addressed in the outpatient setting.
She is s/p decadron from 12/08 - 12/10/2024
Not bronchospastic on exam 12/13/2024.
She has no prior obstructive lung disease on spirometry
Continue mucinex, airway clearance
She is on Duonebs QID, continue for now-while in the hospital.
Continue Advair for now, may continue until seen in our office. For possible reactive airways.
Tessalon perles
ocean nasal spray QID on 12/11
Prior echocardiogram showed no significant RV dysfunction
proBNP 318 on 12/08/2024
Other possibility for SOB is compensation for metabolic acidosis from urosepsis
Blood gas on 12/10/2024 shows respiratory alkalosis
SOB has improved, its mainly her cough that she complains of now (as of 12/12/2024)
She does see at risk for OSAS, would eval as OP
Aggressive rehab while inpatient
Incentive spirometry
Continue physical therapy as able.
Continue mucolytics as needed
Started
Acapella device, encourage.
Maintain pulse ox above 90%.
Will need pulmonary follow-up after discharge. Information will be left in the chart.
Last seen 12/2023, has appt 01/07/[address] Canales at 09:00
We will follow
Diagnostic Data
Chest X-Ray: 12/08/24-No acute cardiopulmonary process.
CT Scan: CHEST 03/17/24- No acute disease of the chest. Large gallstone. Probable calcification of the left kidney possibly associated with a left renal mass. Dedicated CT of the kidneys pre- and post-IV contrast recommended. Tiny pericardial effusion
AP 04/20/24- 1. Punctate bilateral nephrolithiasis. No CT evidence for a suspicious renal or urothelial lesion.
2. Cholelithiasis.
3. Colonic diverticulosis.
4. Severe aortobiiliac calcified atherosclerosis.
Echocardiogram 11/26/2023: Normal LVEF. No significant valvular abnormalities.
Lower extremity Dopplers: Showed acute thrombus within the right common femoral and femoral veins.
PFT's: 12/25/23- FEV1 1.74L 103%, FVC 2.26L 99%, ratio 0.76
Reports and relevant images were personally reviewed.
Subjective Data
-
Date of Service:
Date of Service: December 13, 2024
Chief Complaint: Pulmonary Follow Up
Subjective:
No new complaints
Review of Systems
Cardiopulmonary: Dyspnea (none at rest)
GI: Abdominal Pain (n) and Nausea (n)
Neuro: Headache (n)
Objective Data
Data Reviewed
Vital Signs / I&O / Oxygen:
Vital Signs
Temp Pulse Resp BP Pulse Ox
98.3 F 83 18 154/72 91
12/13/24 07:43 12/13/24 11:43 12/13/24 11:43 12/13/24 07:43 12/13/24 11:43
Intake and Output
12/12/24 12/13/24 12/14/24
06:59 06:59 06:59
Intake Total 700 / 700 550 / 550 480 / 480
Balance 700 / 700 550 / 550 480 / 480
SaO2 91
Nasal Cannula flow liters per 2
minute
Physical Exam
General: Respiratory Distress (negative), Comfortable, Chills (negative) and Sweats (negative)
HEENT: Normocephalic and Anicteric
Cardiovascular: S1-S2, Murmur (negative), Peripheral Edema (Trace lower extremity edema bilaterally) and Other (Distant heart sounds due to body habitus)
Respiratory: Clear, Wheeze (negative), Crackles (negative), Rhonchi (negative), Non-Labored Respirations and Stridor (negative)
GI: Soft, Non Distended, Non Tender and Normal Bowel Sounds
Neurology: AO x 3 and Tremors (negative)
Skin: Warm, Dry, Cyanosis (negative) and Jaundice (negative)
Labs/Micro/Reports
Lab Data
12/13/24 07:56
12/13/24 07:56
Microbiology
12/08/24 21:06 Urine Urine Culture - Final
Escherichia coli
--- NOTE | 2024-12-13 14:39 | W.PN.HOSP.TC ---
Today's Communication/Plan
-
dc home with VN
Assessment / Plan
Assessment / Plan
Assessment:
shortness of breath with hypoxia
Suspect Post-viral upper respiratory illness, possible Bronchitis
Exertional Dyspnea
- CXR: No acute cardiopulmonary process.
- DuoNeb ATC and PRN
- No wheezing, IV Decadron discontinued as per pulm
- O2 PRN titrate as needed to maintain SpO2 >93%, wean as tolerated
- Mucinex
- Incentive Spirometer, Acapella, VEST
- 12/11/24 home oxygen assessment appreciated no need
- Nocturnal desats to 70, 80s on testing
- Patient is in need of oxygen at 2 liters/minute via nasal cannula continuously at night due to pulse oximetry of 78% on room air at rest. Oxygen will help to improve hypoxemia. DuoNeb therapy has been tried and is ineffective in treating hypoxemia
related symptoms. Oxygen is needed to improve symptoms.
CAD hx cardiac stents x2
- Intermittent chest tightness, discomfort radiating to arms, intermittent sob
- continue clopidogrel/Statin
- Echo; with normal EF per Dr. Vargas
- Cardiology following
Metabolic Acidosis
- Bicarb supplementation completed
Chronic HFpEF
- Echo; with normal EF per Dr. Vargas
- Cardiology following
- continue ezetimibe, furosemide, and potassium chloride
Constipation
- bowel regimen
E. Coli UTI
- complete Augmentin x 5 total days
hx hypertension
Low normotensive pressure
- home antihypertensives with parameters
Hx Kidney Stones
- cont home doxazosin
hyperlipidemia
- continue atorvastatin
Hx DVT
- continue Eliquis BID
GERD
- continue pantoprazole
DVT ppx: Eliquis
Code: Full
Anticipated Discharge: > 48 hours
Subjective/Interval History
-
Date of Service: December 13, 2024
no new complaints
Objective Data
-
Labs:
Laboratory Results
12/13/24
07:56
WBC 9.6
Hgb 13.3
Hct 39.9
Plt Count 166
Sodium 138
Potassium 4.2
Chloride 106
Carbon Dioxide 23
BUN 30 H
Creatinine 1.1 H
Glucose 78
Calcium 8.8
Vital Signs:
Vital Signs
Temp Pulse Resp BP Pulse Ox
98.3 F 83 18 154/72 91
12/13/24 07:43 12/13/24 11:43 12/13/24 11:43 12/13/24 07:43 12/13/24 11:43
I&O
12/12/24 12/13/24 12/14/24
06:59 06:59 06:59
Intake Total 700 / 700 550 / 550 480 / 480
Balance 700 / 700 550 / 550 480 / 480
Physical Exam
-
General: No Apparent Distress
HEENT: Normocephalic and Atraumatic
Respiratory: Negative Wheezes
Cardiac: Regular Rhythm and S1/S2
GI: Soft
Musculoskeletal: No Edema
Neuro: AO x 3
Hematologic / Lymphatic: No Lymphadenopathy
Psych: Calm
Data Reviewed
-
Total Time Spent with Patient (in minutes): 42
Labs: Labs Reviewed by me
[2024-12-13 14:58] VITALS: BP 150/70
--- NOTE | 2024-12-13 15:40 | W.DS.TRANS ---
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
-
Discharge Instructions:
Sleep Apnea Risk Low
Discharge Diagnosis/Procedures Post-viral Respiratory Illness
Nocturnal Desaturation
Suspect Obstructive Sleep Apnea
Metabolic Acidosis- resolved
Chronic Kidney Disease Stage III
Urinary Tract Infection
Hypertension
Chronic Heart Failure with Preserved Ejection
Fraction
History Kidney Stones
Hyperlipidemia
GERD
History Deep Vein Thrombosis
Diet 2 Gram Sodium,Low Cholesterol
Activity As tolerated,With Walker
Driving Restrictions Not until seen by your Dr
Bathing Restrictions None
Other Services PT,OT
Instructions:
Stand-Alone Forms:
Changes to Home Medications: No
Discharge Medications:
DC Medications w/original date entered in [employer]
allopurinol 100 mg tablet 100 mg PO DAILY gout 11/09/23
diltiazem HCl 180 mg capsule,extended release 24 hr 180 mg PO DAILY blood pressure 11/09/23
doxazosin 1 mg tablet 0.5 mg PO DAILY blood pressure 11/09/23
ezetimibe 10 mg tablet 10 mg PO DAILY high cholesterol 11/09/23
pantoprazole 40 mg tablet,delayed release 40 mg PO DAILY Gastrointestinal Issue 11/09/23
polyvinyl alcohol-povidone 0.5 %-0.6 % eye drops 2 drp BOTH EYES QIDPRN PRN dry eyes 11/09/23
potassium chloride 20 mEq tablet,extended release 20 meq PO DAILY Electrolyte Repletion 11/25/23
apixaban 5 mg tablet (Eliquis) 5 mg PO BID #60 tabs 12/02/23
clopidogrel 75 mg tablet 75 mg PO DAILY Blood clot prevention/tx #30 tabs 12/02/23
furosemide 20 mg tablet 20 mg PO DAILY #30 tabs 12/02/23
ascorbic acid (vitamin C) 500 mg tablet (Vitamin C) 500 mg PO DAILY 12/08/24
atorvastatin 20 mg tablet 20 mg PO DAILY 12/08/24
biotin 1 mg tablet 1 mg PO DAILY 12/08/24
therapeutic multivitamin 1 tab PO DAILY 12/08/24
amoxicillin 500 mg-potassium clavulanate 125 mg tablet 1 tab PO Q12 #5 tabs 12/13/24
benzonatate 100 mg capsule 200 mg (2 x 100 mg) PO TID PRN Cough 7 days #42 caps 12/13/24
guaifenesin 600 mg tablet, extended release 12 hr 1,200 mg (2 x 600 mg) PO Q12 7 days #28 tabs 12/13/24
Home Medication Changes
Pending Results: No
Total time spent discharging patient (in min): 41
[2024-12-13 18:58] VITALS: BP 161/78
--- NOTE | 2024-12-13 19:39 | PTCARENOTE ---
Received call from security pt's daughter, Danielle, has arrived for d/c transport home. Pt administered 2000 medications, is not due for any other medications once she returns home. Pt and daughter notified of no other need for medication this
evening. Formal d/c reviewed by brayan LORD, d/c paperwork present with pt in pt belongings bag. Pt transported to daughters car by PCT via wheelchair, all belongings removed from the room and sent down with pt.
== END 2024-12-13 19:33 | disposition home health service (06) | DRG 202 ==
LOC: 4 WEST ACU 18:12
PROVIDERS: Emergency Medicine; Internal Medicine; Nurse Practitioner Family; Physician Assistant; ADMITTING PHYSICIAN Internal Medicine; ATTENDING PHYSICIAN Internal Medicine; CONSULT PHYSICIAN Internal Medicine; CONSULT PHYSICIAN Nuclear Medicine Nuclear Cardiology; EMERGENCY PHYSICIAN Emergency Medicine; FAMILY PHYSICIAN Psychologist; PRIMARYCARE PHYSICIAN Student in an Organized Health Care Education/Training Program
DX: J20.9 Acute bronchitis, unspecified (principal); E87.20 Acidosis, unspecified; I13.0 Hypertensive heart and chronic kidney disease with heart failure and stage 1 through stage 4 chronic kidney disease, or unspecified chronic kidney disease; I50.32 Chronic diastolic (congestive) heart failure; N39.0 Urinary tract infection, site not specified; G47.33 Obstructive sleep apnea (adult) (pediatric); N18.30 Chronic kidney disease, stage 3 unspecified; Z87.442 Personal history of urinary calculi; E78.00 Pure hypercholesterolemia, unspecified; K21.9 Gastro-esophageal reflux disease without esophagitis; Z86.718 Personal history of other venous thrombosis and embolism; R09.02 Hypoxemia; I25.10 Atherosclerotic heart disease of native coronary artery without angina pectoris; Z95.5 Presence of coronary angioplasty implant and graft; K59.00 Constipation, unspecified; B96.20 Unspecified Escherichia coli [E. coli] as the cause of diseases classified elsewhere; I95.9 Hypotension, unspecified; Z96.653 Presence of artificial knee joint, bilateral; Z87.891 Personal history of nicotine dependence; Z79.02 Long term (current) use of antithrombotics/antiplatelets; Z79.01 Long term (current) use of anticoagulants; Z79.899 Other long term (current) drug therapy; N20.0 Calculus of kidney; Z87.01 Personal history of pneumonia (recurrent); Z11.52 Encounter for screening for COVID-19; I89.0 Lymphedema, not elsewhere classified; Z90.710 Acquired absence of both cervix and uterus; Z90.49 Acquired absence of other specified parts of digestive tract; Z98.82 Breast implant status; Z91.041 Radiographic dye allergy status; M10.9 Gout, unspecified; N80.9 Endometriosis, unspecified; I44.0 Atrioventricular block, first degree
CPT/HCPCS: 93308; 36600; 71046; 80048; 80053; 81003; 81015; 82805; 83735; 83880; 84100; 84484; 85025; 85027; 87077; 87086; 87186; 87502; 87811; 93005; 94640; 94669; 94762; 96374; 97163; 97166; 99285

== ENCOUNTER → 2025-03-14 11:22 | Outpatient (REF) | payer OTHER, SELFPAY | LOC: HWRAD 11:22 | PROVIDERS: ATTENDING PHYSICIAN Student in an Organized Health Care Education/Training Program | DX: R06.03 Acute respiratory distress (principal) | CPT/HCPCS: 71046 ==

== ENCOUNTER → 2025-07-13 12:16 | Outpatient (REF) | payer OTHER, SELFPAY | LOC: HWRAD 12:16 | PROVIDERS: ATTENDING PHYSICIAN Student in an Organized Health Care Education/Training Program | DX: J40 Bronchitis, not specified as acute or chronic (principal); R06.09 Other forms of dyspnea; I50.32 Chronic diastolic (congestive) heart failure | CPT/HCPCS: 71046 ==